=== PATIENT | male | born 1965 | race Caucasian/White ===

== ENCOUNTER 2025-05-06 10:40 | Inpatient (IN) | payer MEDICAID, OTHER ==
[~2025-05-06] VITALS: Ht 167.6 cm; Wt 70.1 kg
[2025-05-06] MEDS: cefTRIAXone 2GM/50ML D5W 50 ML IV ONE
[2025-05-06] MEDS: ONDANSETRON HCL 4 MG/2 ML VIAL IV ONE ×3 (11:26→18:27)
[2025-05-06 11:28] VITALS: PULSE 110; RESP 17; O2SAT 94
--- NOTE | 2025-05-06 11:28 | ED.PDOC ---
GI ASSESSMENT HPI Comments 59-year-old male who comes in with chief complaint of abdominal pain and distention. The patient states that he was diagnosed with a liver tumor and then liver cancer approximately one year ago. Approximately three months ago the patient was told that the cancer had spread to both his kidneys in his lungs. The patient has been living in [place] and has been homeless so he has not followed up with anyone about treatment. Over the past four days, the patient has noticed a significant amount of abdominal distention. The patient states that the pain is an 8/10. There has been nausea, vomiting and diarrhea. Prior to arrival the patient did take some ibuprofen with only mild relief. The patient was able to ambulate into the emergency department's without any difficulty. Chief Complaint: Abdominal Pain Time Seen by MD: 10:52 Reviewed Notes: Nurses Notes, Medications, Allergies (No allergies to medications) Allergies: Coded Allergies: NO KNOWN ALLERGIES (Unverified , 05/06/25) Information Source: Patient Mode of Arrival: Ambulatory Timing: Days Duration: Since onset Prehospital treatment: None Quality: Aching Vomitus: Bilious Stool: Watery Severity: Moderate Recent: Other (Possible recent diagnosis of liver cancer with metastasis) Recent Hx of: Liver Disease Pain Location: Diffuse Modifying Factors: Nothing Associated sign and symptoms: Nausea, Vomiting, Diarrhea, Abdominal Pain, Other (Abdominal distention) Past Medical History PAST MEDICAL HISTORY: Cancer (Liver cancer with metastasis), COPD Surgical History (Other): Left arm surgery, bilateral wrist surgery, right knee surgery, left ankle surgery Family History Family History: Family hx of Cancer Social History Smoker: Cigarettes Alcohol: Sober Drugs: Methamphetamine Lives In: Homeless Constitutional: denies: chills, diaphoresis, fatigue, fever, malaise, sweats, weakness, others EENTM: denies: blurred vision, double vision, ear bleeding, ear discharge, ear drainage, ear pain, ear ringing, eye pain, eye redness, hearing loss, mouth pain, mouth swelling, nasal discharge, nose bleeding, nose congestion, nose pain, photophobia, tearing, throat pain, throat swelling, voice changes, others Respiratory: reports: shortness of breath; denies: cough, hemoptysis, orthopnea, SOB at rest, SOB with excertion, stridor, wheezing, others Cardiovascular: denies: chest pain, dizzy spells, diaphoresis, Dyspnea on exertion, edema, irregular heart beat, left arm pain, lightheadedness, palpitations, PND, syncope, others Gastrointestinal: reports: abdomen distended, abdominal pain, diarrhea, nausea, vomiting; denies: blood streaked bowels, constipated, dysphagia, difficulty swallowing, hematemesis, melena, poor appetite, poor fluid intake, rectal bleeding, rectal pain, others Genitourinary: denies: burning, dysuria, flank pain, frequency, hematuria, incontinence, penile discharge, penile sore, pain, testicle pain, testicle swelling, urgency, others Neurological: denies: dizziness, fainting, headache, left sided numbness, left sided weakness, numbness, paresthesia, pre-existing deficit, right sided numbness, right sided weakness, seizure, speech problems, tingling, tremors, weakness, others Musculoskeletal: denies: back pain, gout, joint pain, joint swelling, muscle pain, muscle stiffness, neck pain, others Integumetry: denies: bruises, change in color, change in hair/nails, dryness, laceration, lesions, lumps, rash, wounds, others Allergic/Immunocompromised: denies: Difficulty Healing, Frequent Infections, Hives, Itching, others Hematologic/Lymphatic: denies: anemia, blood clots, easy bleeding, easy bruising, swollen glands, others Endocrine: denies: excessive hunger, excessive sweating, excessive thirst, excessive urination, flushing, intolerance to cold, intolerance to heat, unexplained weight gain, unexplained weight loss, others Psychiatric: denies: anxiety, bipolar disorder, depression, hopeless, panic disorder, schizophrenia, sleepless, suicidal, others Physical Exam General Appearance: Moderate Distress HEENT: Pale Conjuntivae (L), Pale Conjuntivae (R), Pharynx Normal, TMs Normal Neck: Full Range of Motion, Non-Tender, Normal, Normal Inspection Respiratory: Chest Non-Tender, Lungs Clear, No Accessory Muscle Use, No Respiratory Distress, Normal Breath Sounds Cardiovascular: No Edema, No JVD, No Murmur, No Gallop, Normal Peripheral Pulses, Regular Rate/Rhythm Breast Exam: Deferred Gastrointestinal: Distended, Hepatomegaly, No Pulsatile Mass, Normal Bowel Sounds Genitalia: Deferred Pelvic: Deferred Rectal: Deferred Extremities: No calf tenderness, Normal capillary refill, Pedal edema Musculoskeletal : Apperance: Normal Neurologic: Alert, chief executive or managing director II-XII nml as Tested, No Motor Deficits, Normal Affect, Normal Mood, No Sensory Deficits Cerebellar Function: Normal Reflexes: Normal Skin: Dry, Normal Color, Warm Lymphatic: No Adenopathy Was a procedure done? Was a procedure done?: No GI differential Dx Differential Diagnosis: Diverticular disease, Gastritis/PUD, Gastroenteritis, Hepatitis, Other (Liver cirrhosis) X-Ray, Labs, Meds, VS Vital Signs Date Time Temp Pulse Resp B/P (MAP) Pulse Ox O2 Delivery O2 Flow Rate FiO2 05/06/25 11:28 110 17 94 Room Air* 0 21 05/06/25 11:28 98.6 110 17 106/66 (79) 94 98.6 05/06/25 11:03 99.1 102 16 126/77 (93) 96 99.1 Lab Test 05/06/25 12:00 05/06/25 11:54 Range/Units Urine Color Dark-yellow Yellow Urine Clarity Clear Clear Urine pH 6.0 5.0-9.0 Urine Specific Marvin 1.027 1.001-1.035 Urine Protein 1+ H Negative Urine Ketones Negative Negative Urine Blood Negative Negative /uL Urine Nitrite Negative Negative Urine Bilirubin 1+ Negative Urine Urobilinogen 12 H Negative mg/dL Urine Leukocyte Esterase Negative Negative /uL Urine RBC 1 0 - 3 /hpf Urine Microscopic WBC 3 0-3 /HPF Urine Squamous Epithelial Cells None seen <5 /hpf Urine Bacteria None seen None Seen /hpf Urine Glucose Normal Normal mg/dL White Blood Count 10.8 4.4-10.8 10^3/uL Red Blood Count 4.03 L 4.5-5.90 10^6/uL Hemoglobin 11.8 L 13.5-17.5 g/dL Hematocrit 35.8 L 41.0-53.0 % Mean Corpuscular Volume 88.7 80.0-100.0 fL Mean Corpuscular Hemoglobin 29.3 28.0-32.0 pg Mean Corpuscular Hemoglobin Concent 33.0 32.0-36.0 g/dL Red Cell Distribution Width 20.3 H 11.8-14.3 % Platelet Count 344 140-450 10^3/uL Mean Platelet Volume 8.7 6.9-10.8 fL Neutrophils (%) (Auto) 37.0-80.0 % Lymphocytes (%) (Auto) 10.0-50.0 % Monocytes (%) (Auto) 0.0-12.0 % Basophils (%) (Auto) 0.0-2.0 % Neutrophils # (Auto) 1.6-8.6 10 ^3/uL Lymphocytes # (Auto) 0.4-5.4 10 ^3/uL Monocytes # (Auto) 0-1.3 10 ^3/uL Differential Total Cells Counted Pending Neutrophils % (Manual) Pending Band Neutrophils % (Manual) Pending Lymphocytes % (Manual) Pending Monocytes % (Manual) Pending Eosinophils % (Manual) Pending Basophils % (Manual) Pending Metamyelocytes % (manual) Pending Myelocytes % (Manual) Pending Promyelocytes % (Manual) Pending Blast Cells % (Manual) Pending Reactive Lymphocytes Pending Platelet Estimate Pending Prothrombin Time 12.9 H 9.3-11.8 sec Prothrombin Time INR 1.24 H 0.9-1.15 Activated Partial Thromboplast Time 36.9 H 24.5-34.5 SEC Sodium Level 131 L 136-145 mmol/L Potassium Level 4.6 3.5-5.1 mmol/L Chloride Level 97 L 98-107 mmol/L Carbon Dioxide Level 27 20-31 mmol/L Anion Gap 7 5-15 Blood Urea Nitrogen 13 9-23 mg/dL Creatinine 0.70 0.700-1.30 mg/dL Glomerular Filtration Rate Calc 106 >90 mL/min BUN/Creatinine Ratio 18.6 10.0-20.0 Serum Glucose 85 74-106 mg/dL Calcium Level 9.6 8.7-10.4 mg/dL Total Bilirubin 1.7 H 0.2-1.0 mg/dL Aspartate Amino Transferase (AST) 324 H <34 U/L Alanine Aminotransferase (ALT) 204 H 7-40 U/L Alkaline Phosphatase 288 H 46-116 U/L Total Protein 7.8 5.7-8.2 g/dL Albumin 3.4 3.2-4.8 g/dL Lipase 89 H 12-53 U/L Current Medications Medications (Trade) Dose Ordered Sig/Ruba Route Start Time Stop Time Status Last Admin Ondansetron HCl (Zofran) 4 mg ONCE ONCE IV 05/06/25 11:15 05/06/25 11:16 DC 05/06/25 11:26 IMPRESSION: Hepatic cirrhosis and sequelae of portal hypertension. Presumed posttreatment related change in the posterior right hepatic dome. Fibrotic changes in the lung bases. Indeterminate 1.4 cm nodule in the left lower lobe. Hep-Lock was established. The patient was given Zofran 4 mg IV push the nausea The patient is being admitted at this time The patient's CBC is within normal limits The chemistry panel shows elevated liver enzymes as well as the lipase level of 89 The INR is 1.24 At this time, the patient will be admitted to the hospitalist Images Reviewed?: Images reviewed and evaluated by me Time of 1ST Reevaluation: 11:27 Reevaluation 1ST: Unchanged Patient Education/Counseling: Diagnosis, Treatment, Prognosis Family Education/Counseling: No Family Present Departure 1 Departure Time of Disposition: 12:53 Impression: Primary Impression: Intractable abdominal pain Additional Impressions: Liver cirrhosis Qualified Codes: K70.30 - Alcoholic cirrhosis of liver without ascites Acute pancreatitis Qualified Codes: K85.20 - Alcohol induced acute pancreatitis without ne crosis or infection Disposition: ADMITTED INPATIENT Admit to: Med Surg Condition: Fair Critical Care Note Critical Care Time?: No Stability Stability form required: Yes Unstable for transfer: ED Physician Assesment (Clinical assesment) Heart Score Heart Score: Heart Score Response (Comments) Value History N/A 0 EKG N/A 0 Age N/A 0 Risk Factors N/A 0 Troponin N/A 0 Total 0 I personally scribed for CALE BHAT MD ([email or web address]) on 05/06/25 at 11:46. Electronically submitted by Esther Abraham [email or web address]). CALE BHAT MD May 06, 2025 11:28
--- NOTE | 2025-05-06 11:44 | DVH ---
Exam: CT CT AB PEL WO CON-NO ORAL OR IV History: pain Comparison Study: None Technique: Multidetector spiral CT of the abdomen was performed from lung bases to pubic symphysis. I maging was performed without IV contrast. Axial, coronal and sagittal multiplanar reformats were obta ined from the axial data set by the technologist. Radiation Dose : 1. Abdomen/Pelvis: CTDIvol 9.2 mGy, DLP 484.1 mGy*cm. Findings: Evaluation of solid organs is limited due to lack of intravenous contrast use. Lung Bases: Fibrotic changes are present in the lung bases. 1.4 cm nodule in the left lower lobe. Liver: Hepatic cirrhosis. Heterogeneous hyperechoic regions are present in the right hepatic dome pos sibly representing posttreatment related change. Gallbladder and Biliary Tree: Unremarkable Spleen: Splenomegaly. Pancreas: The pancreas is grossly normal in appearance. Adrenal Glands: Left adrenal mass measures 6.0 cm. Kidneys: Kidneys are grossly normal without calculi or hydronephrosis. Bladder: Grossly unremarkable for degree of distention. Bowel: The stomach is grossly normal in appearance. Small bowel and colon are normal in caliber and d istribution. The appendix is not visualized; however, no secondary findings of acute appendicitis rupa ntified. Ascites: Small volume ascites. Lymphadenopathy: No mesenteric, retroperitoneal or periportal lymphadenopathy. Abdominal Wall and Mesentery: Unremarkable. Vasculature: The visualized abdominal aorta is normal in size and caliber. There is extensive athero sclerotic calcification of the aorta and its branches. Evaluation of abdominal and pelvic vessels is limited due to lack of intravenous contrast. Pelvic Organs: Unremarkable Musculoskeletal: No aggressive focal bony lesions, acute fractures or dislocation. Degenerative hartmann es of the spine. IMPRESSION: Hepatic cirrhosis and sequelae of portal hypertension. Presumed posttreatment related change in the posterior right hepatic dome. Fibrotic changes in the lung bases. Indeterminate 1.4 cm nodule in the left lower lobe.
[2025-05-06 12:23] LABS: Alanine Aminotransferase 204 U/L (7-40); Albumin 3.4 g/dL (3.2-4.8); Alkaline Phosphatase 288 U/L (46-116); Anion Gap 7 (5-15); Aspartate Aminotransferase 324 U/L (<34); BUN/Creatinine Ratio 18.6 (10.0-20.0); Blood Urea Nitrogen 13 mg/dL (9-23); Calcium 9.6 mg/dL (8.7-10.4); Carbon Dioxide 27 mmol/L (20-31); Chloride 97 mmol/L (98-107); Glucose 85 mg/dL (74-106); Potassium 4.6 mmol/L (3.5-5.1); Sodium 131 mmol/L (136-145); Total Protein 7.8 g/dL (5.7-8.2)
[2025-05-06 12:24] LABS: Bilirubin, Total 1.7 mg/dL (0.2-1.0)
[2025-05-06 12:25] LABS: Urine Bacteria None Seen /hpf (None Seen)
[2025-05-06 12:26] LABS: Hematocrit 35.8 % (41.0-53.0); Hemoglobin 11.8 g/dL (13.5-17.5); Mean Corpuscular Hemoglobin 29.3 pg (28.0-32.0); Mean Corpuscular Volume 88.7 fL (80.0-100.0); Platelet Count (auto) 344 10^3/uL (140-450); Red Blood Cells 4.03 10^6/uL (4.5-5.90); White Blood Cell 10.8 10^3/uL (4.4-10.8)
[2025-05-06 12:31] LABS: Red Cell Distribution Width 20.3 % (11.8-14.3)
[2025-05-06 12:32] LABS: INR 1.24 (0.9-1.15); Partial Thromboplastin Time 36.9 SEC (24.5-34.5); Prothrombin Time 12.9 sec (9.3-11.8)
[2025-05-06 12:33] LABS: Basophils % (manual) 0 (0.0-2.0); Blast Cells 0; Metamyelocytes % 0; Myelocytes % 0; Promyelocytes % 0; Reactive Lymphocytes 0
[2025-05-06 12:42] LABS: Lipase 89 U/L (12-53)
[2025-05-06 12:45] LABS: Urine Blood Negative /uL (Negative); Urine Clarity Clear (Clear); Urine Color Dark-Yellow (Yellow); Urine Protein, UAD 1+ (Negative); Urine Specific Gravity 1.027 (1.001-1.035); Urine Squamous Epithelial Cell None Seen /hpf (<5); Urine WBC 3 /HPF (0-3)
[2025-05-06 12:47] LABS: Urine Urobilinogen 12 mg/dL (Negative)
[2025-05-06 13:51] LABS: Band Neutrophils % (manual) 6; Eosinophils % (manual) 1 (0-7)
[2025-05-06 13:52] LABS: Lymphocytes % (manual) 21 (10.0-50.0); Monocytes % (manual) 5 (0-12)
[2025-05-06 13:53] LABS: Anisocytosis Moderate; Platelet Estimate Adequate
[2025-05-06] MEDS: MORPHINE SULFATE 4 MG/ML SYR/VIAL IV ONE ×2 (14:29→18:30)
[2025-05-06] MEDS: ACETAMINOPHEN 325 MG TAB PO ONE (17:16)
[2025-05-06] MEDS: SODIUM CHLORIDE 0.9% 500 ML IV ONE (22:30)
[2025-05-06] MEDS ORDERED: ACETAMINOPHEN 325 MG TAB PO PRN (22:30)
[2025-05-06] MEDS ORDERED: VANCOMYCIN PER PHARMACY 0 MG IV SCH (22:30)
[2025-05-06 22:40] VITALS: RESP 16; O2SAT 96
[2025-05-06] MEDS: VANCOMYCIN 1.5GM/300ML 300 ML IV ONE (23:00)
[2025-05-06 23:26] LABS: Basophils # (auto) 0.1 10 ^3/uL (0-0.2); Basophils % (auto) 0.6 % (0.0-2.0); Eosinophils # (auto) 0.1 10 ^3/uL (0-0.8); Eosinophils % (auto) 0.7 % (0.0-7.0); Hematocrit 35.2 % (41.0-53.0); Hemoglobin 11.9 g/dL (13.5-17.5); Lymphocytes # (auto) 2.8 10 ^3/uL (0.4-5.4); Mean Corpuscular Hemoglobin 29.6 pg (28.0-32.0); Mean Corpuscular Hgb Conc. 33.8 g/dL (32.0-36.0); Mean Corpuscular Volume 87.8 fL (80.0-100.0); Monocytes # (auto) 0.8 10 ^3/uL (0-1.3); Monocytes % (auto) 6.1 % (0.0-12.0); Neutrophils % (auto) 70.6 % (37.0-80.0); Platelet Count (auto) 384 10^3/uL (140-450); Red Blood Cells 4.01 10^6/uL (4.5-5.90); Red Cell Distribution Width 19.8 % (11.8-14.3); White Blood Cell 12.8 10^3/uL (4.4-10.8)
[2025-05-06 23:35] LABS: Albumin 3.4 g/dL (3.2-4.8); Anion Gap 7 (5-15); BUN/Creatinine Ratio 14.6 (10.0-20.0); Blood Urea Nitrogen 14 mg/dL (9-23); Calcium 9.4 mg/dL (8.7-10.4); Carbon Dioxide 25 mmol/L (20-31); Glucose 98 mg/dL (74-106); Potassium 4.7 mmol/L (3.5-5.1); Total Protein 7.9 g/dL (5.7-8.2)
[2025-05-06 23:36] LABS: Alanine Aminotransferase 216 U/L (7-40); Alkaline Phosphatase 279 U/L (46-116); Aspartate Aminotransferase 330 U/L (<34); Bilirubin, Total 1.7 mg/dL (0.2-1.0); Chloride 94 mmol/L (98-107); Sodium 126 mmol/L (136-145)
[2025-05-07] VITALS (14 sets, daily range): BP systolic 98–111; BP diastolic 57–70; PULSE 86–100; RESP 16–18; TEMP 97.8–100; O2SAT 90–98
[2025-05-07] MEDS: FUROSEMIDE 20 MG/2 ML VIAL IV ONE (00:45)
[2025-05-07] MEDS: IPRATROPIUM BROM 0.5 MG/2.5ML INH SOL NEB ONE (00:45)
[2025-05-07] MEDS: ALBUTEROL SULF 2.5 MG/0.5ML(0.5%) NEB SOLN NEB ONE (00:45)
[2025-05-07] MEDS: PANTOPRAZOLE 40 MG/10 ML VIAL INJ IV ONE (00:45)
--- NOTE | 2025-05-07 00:52 | DVHHPRES ---
History of Present Illness Resident Creating Document: BLANKASALVADOR RESIDENT History of Present Illness Patient is a 59-year-old male with a past medical history of COPD, liver cancer diagnosed about 8 months ago presented to the ED with a chief complaint of abdominal pain and distention. Patient reports that he is homeless and was living in [place] but was not happy with the treatment the and came to [place] forgetting further treatment. Patient reports of being a heavy drinker previously but quit about 6 years ago, last year had abdominal distention following which he was diagnosed with liver cancer following a biopsy done 8 months ago. Reports that he was offered treatment chemotherapy/radi otherapy but he does not want to get any of those. He reports that since the last 4-5 days , noticed abdominal distention and worsening abdominal pain. Reports of having loose stools 1-2 episodes every day and has nausea, no blood in the stools, no blood in the vomitus. Patient also noticed that about 3 days ago he had a sunburn on his nose following which the skin started peeling of the small part of the skin was attached which he peeled of himself and it was bleeding and started oozing clear to yellowish liquid. He also had a small bump on his right arm which also started oozing. Patient reports of a bump on his head near the vertex which is a small rough scaly crusted about 1 X 0.5 cm in size with irregular borders course and dry and scaly. Past medical history: COPD, liver cancer Surgical history: Bilateral wrist, right knee, left ankle surgery Social history: Patient was a heavy drinker and quit 6 years ago, currently smokes about half a pack of cigarettes per day and occasional methamphetamine use last reported 2 weeks ago No home medications Review of Systems Review of Systems Patient seen and examined at the bedside Reports of abdominal pain, nausea Nose pain Denies fever or chills Allergies: Coded Allergies: NO KNOWN ALLERGIES (Unverified , 05/06/25) Medications Current Medications Medications Dose Ordered Sig/Ruba Route Start Time Stop Time Status Last Admin Dose Admin Vancomycin HCl 0 ml @ 0 mls/hr UD IV 05/06/25 22:30 UNV Ceftriaxone Sodium 50 ml @ 100 mls/hr DAILY@09 IV 05/07/25 09:00 Acetaminophen 650 mg Q8HP PRN PO 05/06/25 22:30 Ondansetron HCl 4 mg Q6HPRN PRN IV 05/06/25 22:30 Morphine Sulfate 4 mg Q6HPRN PRN IV 05/06/25 22:30 Exam Vital Signs Vital Signs Date Time Temp Pulse Resp B/P (MAP) Pulse Ox O2 Delivery O2 Flow Rate FiO2 05/06/25 22:51 99.9 87 18 105/64 (78) 93 99.9 05/06/25 22:40 Room Air* 0 21 Exam Gen - no pallor, no icterus, no cyanosis, no clubbing, no LAD, 2+ bilateral pitting edema. Skin - Patients skin is warm and dry. HEENT - normocephalic, atraumatic, moist mucous membranes. Neck - full ROM, no LAD, no JVD Pulmonary - B/L equal breath sounds with coarse crackles in the lower lobes, no wheezing, no stridor. cardiovascular - regular S1,S2 heard, no added sounds, no murmurs heard. periphe ral pulses normal radial 2+, pedal 2+. GI - distended, hard abdomen with diffuse tenderness to palpation, hepatosplenomegaly palpated Bowel sounds normoactive, no shifting dullness Neurological - Patient is A/O X 3 . Bilateral upper extremity strength 5/5, bilateral lower extremity strength 5/5, no facial droop, normal speech, no tremor, no sensory deficiets. Labs/Xrays Labs Test 05/06/25 23:05 05/06/25 12:00 05/06/25 11:54 Range/Units White Blood Count 12.8 H 4.4-10.8 10^3/uL Red Blood Count 4.01 L 4.5-5.90 10^6/uL Hemoglobin 11.9 L 13.5-17.5 g/dL Hematocrit 35.2 L 41.0-53.0 % Mean Corpuscular Volume 87.8 80.0-100.0 fL Mean Corpuscular Hemoglobin 29.6 28.0-32.0 pg Mean Corpuscular Hemoglobin Concent 33.8 32.0-36.0 g/dL Red Cell Distribution Width 19.8 H 11.8-14.3 % Platelet Count 384 140-450 10^3/uL Mean Platelet Volume 8.4 6.9-10.8 fL Neutrophils (%) (Auto) 70.6 37.0-80.0 % Lymphocytes (%) (Auto) 22.0 10.0-50.0 % Monocytes (%) (Auto) 6.1 0.0-12.0 % Eosinophils (%) (Auto) 0.7 0.0-7.0 % Basophils (%) (Auto) 0.6 0.0-2.0 % Neutrophils # (Auto) 9.0 H 1.6-8.6 10 ^3/uL Lymphocytes # (Auto) 2.8 0.4-5.4 10 ^3/uL Monocytes # (Auto) 0.8 0-1.3 10 ^3/uL Eosinophils # (Auto) 0.1 0-0.8 10 ^3/uL Basophils # (Auto) 0.1 0-0.2 10 ^3/uL Nucleated Red Blood Cells 0.0 % Sodium Level 126 #L 136-145 mmol/L Potassium Level 4.7 3.5-5.1 mmol/L Chloride Level 94 L 98-107 mmol/L Carbon Dioxide Level 25 20-31 mmol/L Anion Gap 7 5-15 Blood Urea Nitrogen 14 9-23 mg/dL Creatinine 0.96 0.700-1.30 mg/dL Glomerular Filtration Rate Calc 91 >90 mL/min BUN/Creatinine Ratio 14.6 10.0-20.0 Serum Glucose 98 74-106 mg/dL Lactic Acid Level 1.4 0.4-2.0 mmol/L Calcium Level 9.4 8.7-10.4 mg/dL Total Bilirubin 1.7 H 0.2-1.0 mg/dL Aspartate Amino Transferase (AST) 330 H <34 U/L Alanine Aminotransferase (ALT) 216 H 7-40 U/L Alkaline Phosphatase 279 H 46-116 U/L Total Protein 7.9 5.7-8.2 g/dL Albumin 3.4 3.2-4.8 g/dL Urine Color Dark-yellow Yellow Urine Clarity Clear Clear Urine pH 6.0 5.0-9.0 Urine Specific [place] 1.027 1.001-1.035 Urine Protein 1+ H Negative Urine Ketones Negative Negative Urine Blood Negative Negative /uL Urine Nitrite Negative Negative Urine Bilirubin 1+ Negative Urine Urobilinogen 12 H Negative mg/dL Urine Leukocyte Esterase Negative Negative /uL Urine RBC 1 0 - 3 /hpf Urine Microscopic WBC 3 0-3 /HPF Urine Squamous Epithelial Cells None seen <5 /hpf Urine Bacteria None seen None Seen /hpf Urine Glucose Normal Normal mg/dL Differential Total Cells Counted 100.0 100 Neutrophils % (Manual) 67 37.0-80.0 Band Neutrophils % (Manual) 6 Lymphocytes % (Manual) 21 10.0-50.0 Monocytes % (Manual) 5 0-12 Eosinophils % (Manual) 1 0-7 Basophils % (Manual) 0 0.0-2.0 Metamyelocytes % (manual) 0 Myelocytes % (Manual) 0 Promyelocytes % (Manual) 0 Blast Cells % (Manual) 0 Reactive Lymphocytes 0 Platelet Estimate Adequate Anisocytosis (manual) Moderate Prothrombin Time 12.9 H 9.3-11.8 sec Prothrombin Time INR 1.24 H 0.9-1.15 Activated Partial Thromboplast Time 36.9 H 24.5-34.5 SEC Lipase 89 H 12-53 U/L Assessment/Plan Assessment/Plan Acute abdominal pain Hepatosplenomegaly H/o liver cancer Possible portal hypertension liver cirrhosis MELD-Na 11 Coagulopathy Possible SBP - CT abdomen pelvis shows hepatic cirrhosis and sequelae of portal hypertension, splenomegaly, heterogeneous hyperechoic regions in the right hepatic dome passive early post treatment related change, small volume ascites - started on IV ceftriaxone 2 g - abdominal ultrasound pending - Lasix and spironolactone Nasal wound Sunburn Wound on the right upper extremity - started on IV vancomycin - IV fluids Acute on chronic hypoxic respiratory failure COPD, no exacerbation Lung fibrosis Left lower lobe nodule measuring 1.4 cm, possible metastasis - duo nebs q.8 hours - oxygen as needed Sepsis likely due to skin wounds vs SBP - IV vancomycin and ceftriaxone - judicious use of IV fluids Hypervolemic hypotonic hyponatremia likely from cirrhosis - iv lasix PUD prophylaxis: Protonix Goals of care discussed with the patient for over 31 minutes. Full code Time spent: 47 minutes Plan discussed with Dr. Albarado Plan discussed with: Patient My Orders Orders - SALVADOR MOSCOSO RESIDENT Procedure Category Date Status Time Admit ADMIT 05/06/25 Transmitted 22:29 Oxygen By Nasal RT 05/06/25 Transmitted Cannula 22:29 Stat Ekg For Chest VIRAJ 05/06/25 In Process Pain 22:29 Notify Of Changes VIRAJ 05/06/25 In Process From Base 22:29 Wound Culture W/ Gs DANIEL 05/06/25 Logged 22:29 Wound Culture W/ Gs DANIEL 05/06/25 Logged 22:29 Mrsa Screen DANIEL 05/06/25 Logged 22:29 Vancomycin Per PHA 05/06/25 Pending Pharmacy 22:30 Ceftriaxone 1gm/50ml PHA 05/07/25 In Process D5w (Rocephin) 09:00 Blood Culture DANIEL 05/06/25 In Process 22:29 Chest Xray 1 View XY 05/06/25 Taken 22:29 Stool Occult Blood LAB 05/06/25 Logged 22:29 Acetaminophen Tablet PHA 05/06/25 In Process (Tylenol Tablet) 22:30 Ondansetron Hcl [facility] 05/06/25 In Process (Zofran) 22:30 Morphine Sulfate PHA 05/06/25 In Process Injection 22:30 Vancomycin 1.5gm/300ml PHA 05/06/25 In Process 23:00 Date of Service: May 06, 2025 Billing Provider: MARIAELENA ALBARADO MD Common Visit Codes: 86053-BCBDBNV INP/OBS CARE (HIGH) Secondary Visit Codes: 01760-[id number] CARE PLAN 30 MINUTES SALVADOR MOSCOSO RESIDENT May 07, 2025 00:52
--- NOTE | 2025-05-07 04:18 | DVH ---
EXAM: XY CHEST XRAY 1 VIEW HISTORY: SOB COMPARISON: Upper images of CT scan of the abdomen dated 05/06/2025. TECHNIQUE: Portable upright AP view of the chest was performed. FINDINGS: There are diffuse bilateral interstitial opacities. No pneumothorax or consolidative infiltrates. The heart is not enlarged. IMPRESSION: Diffuse bilateral pulmonary interstitial opacities likely due to interstitial pulmonary fibrosis. C onsider follow-up noncontrast CT scan of the chest for better characterization a nonemergent basis.
[2025-05-07 05:35] LABS: Amphetamine Screen, Urine Neg (NEGATIVE); Barbiturate Scree,Urine Neg (NEGATIVE); Benzodiazephine Screen, Urine Neg (NEGATIVE); Cannabinoid Screen, Urine Neg (NEGATIVE); Cocaine Screen, Urine Neg (NEGATIVE); Opiate Scree,Urine Neg (NEGATIVE); Phencyclidine Screen, Urine Neg (NEGATIVE)
[2025-05-07] MEDS: HYDROcodone-ACET 5/325MG TAB PO PRN (05:39)
[2025-05-07] MEDS: PANTOPRAZOLE 40 MG TAB PO SCH (06:00)
[2025-05-07] MEDS: IPRATROPIUM BROM 0.5 MG/2.5ML INH SOL NEB SCH (06:57)
[2025-05-07] MEDS: ALBUTEROL SULF 2.5 MG/0.5ML(0.5%) NEB SOLN NEB SCH (06:58)
[2025-05-07] MEDS ORDERED: HYDROmorphone HCL 2 MG/ML VL/or syr IV PRN ×3 (08:15)
[2025-05-07] MEDS ORDERED: LACTATED RINGER'S 1,000 ML IV SCH (08:15)
[2025-05-07] MEDS: ONDANSETRON HCL 4 MG/2 ML VIAL IV PRN (09:00)
[2025-05-07] MEDS ORDERED: cefTRIAXone 1GM/50ML D5W 50 ML IV SCH (09:00)
[2025-05-07] MEDS: HYDROmorphone HCL 2 MG/ML VL/or syr IV PRN (09:01)
--- NOTE | 2025-05-07 09:40 | DVH ---
INDICATION: liver cirrhosis, ascites TECHNIQUE: Multiple real-time sonographic images were obtained of the right upper quadrant. COMPARISON: CT dated 05/06/2025 FINDINGS: The liver demonstrates heterogeneous and nodular echotexture without focal mass lesions. T he liver measures 23 cm. Multiple hyperechoic hepatic lesions are present measuring up to 2.1 cm. There is no intrahepatic or extrahepatic ductal dilatation. The common duct is not visualized. The gallbladder is without evidence of stone or sludge. Possible gallbladder polyp measuring 0.6 cm. The gallbladder wall measures 0.4 cm and is within normal limits. The right kidney measures 12.1 cm. The right kidney is normal in contour, size, and shape. The echoge nicity is normal. There is no hydronephrosis. The pancreas is not well visualized due to overlying bowel gas. IMPRESSION: Hepatic cirrhosis with multiple indeterminate hypoechoic masses possibly representing metastatic dise ase or multifocal HCC. Trace ascites. Gallbladder polyp is present measuring 0.6 cm. FOLLOW UP RECOMMENDATIONS: Extremely low-risk polyps (pedunculated [id number]-wall or thin stalk): <9 mm: no follow-up (FU) 10-14 mm: FU at 6, 12 and 24 months > 15 mm: surgical consult Damian Pryor, Denise C, Gabi J et al. Management of Incidentally Detected Gallbladder Polyps: Society of Radiologists in Ultrasound Consensus Conference Recommendations. Radiology. 2021;:[id number].
[2025-05-07] MEDS: SPIRONOLACTONE 25 MG TAB PO SCH (11:37)
[2025-05-07] MEDS: FUROSEMIDE 20 MG/2 ML VIAL IV SCH (11:37)
--- NOTE | 2025-05-07 11:45 | DVHPNRES ---
Progress Note Date Seen: May 07, 2025 Resident Creating Document: SHANTELL BERGMAN RESIDENT Medical Necessity Reason Pt with a Central, PICC or Fol: No Subjective Review of Systems 59-year-old male with a past medical history of COPD, liver cancer diagnosed about 8 months ago presented to the ED with a chief complaint of abdominal pain and distention. Patient reports that he is homeless and was living in [place] but was not happy with the treatment the and came to [place] forgetting further treatment. Patient reports of being a heavy drinker previously but quit about 6 years ago, last year had abdominal distention following which he was diagnosed with liver cancer following a biopsy done 8 months ago. Reports that he was offered treatment chemotherapy/radiotherapy but he does not want to get any of those. He reports that since the last 4-5 days , noticed abdominal distention and worsening abdominal pain. Reports of having loose stools 1-2 episodes every day and has nausea, no blood in the stools, no blood in the vomitus. Patient also noticed that about 3 days ago he had a sunburn on his nose following which the skin started peeling of the small part of the skin was attached which he peeled of himself and it was bleeding and started oozing clear to yellowish liquid. He also had a small bump on his right arm which also started oozing. Patient reports of a bump on his head near the vertex which is a small rough scaly crusted about 1 X 0.5 cm in size with irregular borders course and dry and scaly. Objective vital signs Vital Sign Date Time Temp Pulse Resp B/P (MAP) Pulse Ox O2 Delivery O2 Flow Rate FiO2 05/07/25 11:37 107/75 05/07/25 11:03 98.1 100 18 95 98.1 05/07/25 10:55 Room Air* 0 21 medications Current Medications Medications Dose Ordered Sig/Ruba Route Start Time Stop Time Status Last Admin Dose Admin Vancomycin HCl 0 ml @ 0 mls/hr UD IV 05/06/25 22:30 Acetaminophen 650 mg Q8HP PRN PO 05/06/25 22:30 Ondansetron HCl 4 mg Q6HPRN PRN IV 05/06/25 22:30 05/07/25 09:00 4 MG Morphine Sulfate 4 mg Q6HPRN PRN IV 05/06/25 22:30 Furosemide 20 mg DAILY IV 05/07/25 10:00 05/07/25 11:37 20 MG Spironolactone 25 mg DAILY PO 05/07/25 10:00 05/07/25 11:37 25 MG Ceftriaxone Sodium/Dextrose 50 ml @ 50 mls/hr DAILY@0000 IV 05/08/25 00:00 Pantoprazole Sodium 40 mg DAILY@0600 PO 05/07/25 06:00 Albuterol 2.5 mg Q8HR NEB 05/07/25 06:00 05/07/25 06:58 2.5 MG Ipratropium [place] 0.5 mg Q8HR NEB 05/07/25 06:00 05/07/25 06:57 0.5 MG Hydromorphone HCl 0.5 mg Q3HPRN PRN IV 05/07/25 08:15 Hydromorphone HCl 1 mg Q4HPRN PRN IV 05/07/25 08:15 05/07/25 09:01 1 MG Examination GENERAL: Not in acute distress. HEENT: EOMI, Moist mucous membranes. No scleral icterus. No cervical lymphadenopathy. LUNGS: B/L equal breath sounds with coarse crackles in the lower lobes, no wheezing, no stridor. CARDIOVASCULAR: Regular rate and rhythm. No murmur. No JVD. ABDOMEN: distended, hard abdomen with diffuse tenderness to palpation, hepatosplenomegaly palpated Bowel sounds normoactive, no shifting dullness EXTREMITIES: 2+ pedal edema. Nontender. SKIN: No rashes or lesions. Warm. 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 - Trace ascites. - CT abdomen pelvis shows hepatic cirrhosis and sequelae of portal hypertension, splenomegaly, heterogeneous hyperechoic regions in the right hepatic dome passive early post treatment related change, small volume ascites - started on IV ceftriaxone 2 g - abdominal ultrasound pending - Lasix and spironolactone # Nasal wound # Sunburn # Wound on the right upper extremity - use sulfasalazine on wound twice daily # Acute on chronic hypoxic respiratory failure # COPD, no exacerbation # Lung fibrosis # Left lower lobe nodule measuring 1.4 cm, possible metastasis - duo nebs q.8 hours - oxygen as needed Hypervolemic hypotonic hyponatremia likely from cirrhosis - iv lasix PUD prophylaxis: Protonix Goals of care discussed with the patient for 21 minutes. Full code Plan discussed with Dr. Cooper Plan discussed with: Patient Date of Service: May 07, 2025 Billing Provider: DEANDRA COOPER MD Common Visit Codes: [id number] INP/OBS CARE(HIGH) Secondary Visit Codes: [id number] CARE PLAN 30 MINUTES SHANTELL BERGMAN RESIDENT May 07, 2025 11:45 DEANDRA COOPER MD May 07, 2025 22:26
[2025-05-07] MEDS ORDERED: HYDROMORPHONE HCL 1 MG/ML INJ IV PRN (15:15)
[2025-05-07] MEDS: SILVER SULFADIAZINE 1 % TOPICAL CREAM 50GM TOP SCH (22:14)
[2025-05-07] MEDS: HYDROMORPHONE HCL 1 MG/ML INJ IV PRN (22:19)
[2025-05-08] VITALS (12 sets, daily range): BP systolic 101–120; BP diastolic 61–77; PULSE 81–108; RESP 16–18; TEMP 98.3–99; O2SAT 89–99
[2025-05-08] MEDS: cefTRIAXone 2GM/50ML D5W 50 ML IV SCH (00:06)
[2025-05-08 04:08] LABS: Hematocrit 31.7 % (41.0-53.0); Hemoglobin 10.7 g/dL (13.5-17.5); Mean Corpuscular Hemoglobin 29.6 pg (28.0-32.0); Mean Corpuscular Hgb Conc. 33.8 g/dL (32.0-36.0); Mean Corpuscular Volume 87.5 fL (80.0-100.0); Platelet Count (auto) 317 10^3/uL (140-450); Red Blood Cells 3.62 10^6/uL (4.5-5.90); Red Cell Distribution Width 19.5 % (11.8-14.3); White Blood Cell 10.5 10^3/uL (4.4-10.8)
[2025-05-08 04:14] LABS: Band Neutrophils % (manual) 0; Basophils % (manual) 0 (0.0-2.0); Blast Cells 0; Metamyelocytes % 0; Myelocytes % 0; Promyelocytes % 0; Reactive Lymphocytes 0
[2025-05-08 05:00] LABS: Eosinophils % (manual) 3 (0-7); Lymphocytes % (manual) 17 (10.0-50.0); Monocytes % (manual) 4 (0-12)
[2025-05-08 05:01] LABS: Platelet Estimate Adequate
[2025-05-08] MEDS: VANCOMYCIN 1GM/200ML PM 200 ML IV SCH (10:13)
[2025-05-08] MEDS: MORPHINE SULFATE 4 MG/ML SYR/VIAL IV PRN (14:59)
--- NOTE | 2025-05-08 15:22 | DVHPNRES ---
Progress Note Date Seen: May 08, 2025 Resident Creating Document: LETICIA REECE RESIDENT Medical Necessity Reason Pt with a Central, PICC or Fol: No Subjective Review of Systems 59-year-old male with a past medical history of COPD, liver cancer diagnosed about 8 months ago presented to the ED with a chief complaint of abdominal pain and distention. Patient reports that he is homeless and was living in [place] but was not happy with the treatment the and came to [place] forgetting further treatment. Patient reports of being a heavy drinker previously but quit about 6 years ago, last year had abdominal distention following which he was diagnosed with liver cancer following a biopsy done 8 months ago. Reports that he was offered treatment chemotherapy/radiotherapy but he does not want to get any of those. He reports that since the last 4-5 days , noticed abdominal distention and worsening abdominal pain. Reports of having loose stools 1-2 episodes every day and has nausea, no blood in the stools, no blood in the vomitus. Patient also noticed that about 3 days ago he had a sunburn on his nose following which the skin started peeling of the small part of the skin was attached which he peeled of himself and it was bleeding and started oozing clear to yellowish liquid. He also had a small bump on his right arm which also started oozing. Patient reports of a bump on his head near the vertex which is a small rough scaly crusted about 1 X 0.5 cm in size with irregular borders course and dry and scaly. Patient seen and examined at the bedside. Discontinued IV fluids, bladder scan WNL. Soft diet. Patient had 1 BM. Abdomen is swollen and distended and tender. Objective vital signs Vital Sign Date Time Temp Pulse Resp B/P (MAP) Pulse Ox O2 Delivery O2 Flow Rate FiO2 05/08/25 14:59 87 19 107/70 05/08/25 13:00 98.4 95 98.4 05/08/25 10:10 Room Air* 0 21 Total Intake and Output 05/07/25 05/07/25 05/08/25 15:00 23:00 07:00 Intake Total 400 ml 450 ml Output Total 1150 ml Balance 400 ml -700 ml medications Current Medications Medications Dose Ordered Sig/Ruba Route Start Time Stop Time Status Last Admin Dose Admin Vancomycin HCl 0 ml @ 0 mls/hr UD IV 05/06/25 22:30 Acetaminophen 650 mg Q8HP PRN PO 05/06/25 22:30 Ondansetron HCl 4 mg Q6HPRN PRN IV 05/06/25 22:30 05/07/25 09:00 Morphine Sulfate 4 mg Q6HPRN PRN IV 05/06/25 22:30 05/08/25 14:59 Furosemide 20 mg DAILY IV 05/07/25 10:00 05/08/25 10:11 Spironolactone 25 mg DAILY PO 05/07/25 10:00 05/07/25 11:37 Ceftriaxone Sodium/Dextrose 50 ml @ 50 mls/hr DAILY@0000 IV 05/08/25 00:00 05/08/25 00:06 Pantoprazole Sodium 40 mg DAILY@0600 PO 05/07/25 06:00 05/08/25 05:35 Albuterol 2.5 mg Q8HR NEB 05/07/25 06:00 05/07/25 18:41 Ipratropium [place] 0.5 mg Q8HR NEB 05/07/25 06:00 05/08/25 06:15 Silver Sulfadiazine 1 applic BID TOP 05/07/25 22:00 05/07/25 22:14 Vancomycin HCl 200 ml @ 160 mls/hr Q12H IV 05/08/25 09:45 05/08/25 10:13 Examination Patient lying in bed, in no acute distress General: afebrile, palor, mucosae are moist Cardiovascular: Regular S1 and S2. No murmurs, gallops or rubs. No JVD elevation. Bilateral pitting edema Respiratory: Normal B/L air entry on room air. Clear lung sounds on auscultation Abdomen: Mildly hard, tender, distended with hepatosplenomegaly, normoactive bowel sounds, no rebound tenderness Genitourinary: Deferred MSK/skin: Mobilizes 4 limbs. Skin is dry and warm Neurological: No motor, no sensitive deficits, normal speech. Pupils are isocoric and reactive. Psych/Mental Status: A/Ox3 laboratory and microbiology Laboratory Tests 05/08/25 03:30 05/06/25 23:05 Test 05/06/25 23:05 Range/Units Serum Glucose 98 74-106 mg/dL Microbiology Date/Time Source Procedure Growth Status 05/07/25 11:30 Nose Gram Stain - Final Resulted 05/07/25 11:30 Nose Wound Culture - Preliminary Resulted 05/06/25 23:05 Blood Blood Culture - Preliminary NO GROWTH AFTER 24 HOURS OF INCUBATION. Resulted Labs and/or images reviewed: Labs reviewed by me, Image(s) reviewed by me Problem List/Assessment/Plan Problem List/Assessment/Plan Sepsis likely due to skin wound versus spontaneous bacterial peritonitis ? Spontaneous bacterial peritonitis Likely Metastatic liver cancer Liver cirrhosis-meld score likely secondary to alcoholism Coagulopathy secondary to liver disease Hypovolemic hypotonic hyponatremia likely from cirrhosis US Liver shows: Hepatic cirrhosis with multiple indeterminate hypoechoic masses possibly representing metastatic disease or multifocal HCC. Trace ascites. CT abdomen pelvis shows hepatic cirrhosis and sequelae of portal hypertension, splenomegaly, heterogeneous hyperechoic regions in the right hepatic dome passive early post treatment related change, small volume ascites IV vancomycin and IV ceftriaxone 2 g daily Discontinued IV fluids IV Lasix 20 mg and Aldactone 25 mg p.o. Obtain records from [facility] Tumor markers pending Hepatitis panel pending Prelim blood culture negative, prelim wound culture showing Gram-positive milana IV morphine for pain control COPD-no exacerbation On room air Nebulized treatments q.4 hourly Anemia, normocytic versus iron-deficiency Iron panel in a.m. Multiple wounds ? Sunburn Patient has right upper extremity, scalp, nasal wound Wound consulted, wound care, sulfasalazine cream Chronic alcohol dependence Counseled regarding cessation for more than 20 minute client services assistant consulted for homelessness Soft diet with low-sodium Fluid restrictions Strict I&Os Plan discussed with patient in which all questions have been answered Goals of care discussed for more than 28 minutes, full code status Case discussed with Dr. Cooper Plan discussed with: Patient My Orders My Orders Orders - LETICIA REECE RESIDENT Procedure Category Date Status Time Afp Serum Tumor Marker LAB 05/08/25 In Process 09:01 Carcinoembryonic LAB 05/08/25 In Process Antigen 09:01 Carbohydrate Antigen LAB 05/08/25 In Process 19-9 09:01 Ca 125 (Serial) LAB 05/08/25 In Process 09:01 Vitamin B12 LAB 05/08/25 In Process 09:01 Vitamin D, 25-Hydroxy LAB 05/08/25 In Process 09:01 Strict I & O VIRAJ 05/08/25 In Process 09:10 Bladder Scan ORDERS 05/08/25 Transmitted 10:23 Mechanical Soft Diet DIET 05/08/25 Transmitted Lunch * Publicity Agent CONS 05/08/25 Transmitted Consult Dietary Evaluation Review Recommendations by RD: Protein Supplementation Comments: 1) Initiate Ensure Enlive qd 2) Encourage optimal PO intake 3) Advance to regular diet when medically feasible, pending ST approval 4) Follow-up with oncology 6) Continue to monitor I&O, labs, and skin integrity Expected Outcomes/Goals: 1) appetite and labs to improve 2) wounds to improve 3) diet to advance 4) f/u in 3-5 days Date of Service: May 08, 2025 Billing Provider: DEANDRA COOPER MD Common Visit Codes: [id number] INP/OBS CARE(HIGH) LETICIA REECE RESIDENT May 08, 2025 15:22 DEANDRA COOPER MD May 10, 2025 21:07
[2025-05-08] MEDS ORDERED: HYDROcodone-ACET 5/325MG TAB PO PRN (15:30)
--- NOTE | 2025-05-08 23:12 | DVHINCON2 ---
Date of service: May 08, 2025 Reason for Consultation Cirrhosis History of Present Illness 59 y/o M pt with PMH of alcoholic cirrhosis, meth abuse. COPD, liver cancer admitted with abd pain and distension. He reports being diagnosed with liver cancer few months ago and chemoXRT suggested in [place] but he declined without any further f/u. He denies any GIB, positive for constipation. COuld not recall previous EGD/colo Past Medical History As mentioned in HPI Past Surgical History Reviewed Family History: Patient reports no known family medical history. Allergies: Coded Allergies: NO KNOWN ALLERGIES (Unverified , 05/06/25) Current Medications Current Medications Medications (Trade) Dose Ordered Sig/Ruba Route PRN Reason Start Time Stop Time Status Last Admin Ceftriaxone Sodium/Dextrose 50 ml @ 50 mls/hr DAILY@0000 IV 05/08/25 00:00 05/08/25 00:06 Vancomycin HCl 200 ml @ 160 mls/hr Q12H IV 05/08/25 09:45 05/08/25 21:46 Acetaminophen/ Hydrocodone Bitart ([place] 5/325MG Tab) 1 tab Q4HPRN PRN PO MODERATE PAIN (4-6 PAIN SCALE) 05/08/25 15:30 Hold Morphine Sulfate 1 mg Q4HPRN PRN IV SEVERE PAIN (7-10 PAIN SCALE) 05/08/25 15:30 Review of Systems 14 point ROS neg except mentioned above Vital Signs Vital Signs Date Time Temp Pulse Resp B/P (MAP) Pulse Ox O2 Delivery O2 Flow Rate FiO2 05/08/25 21:00 98.3 108 16 113/76 (88) 94 98.3 05/08/25 19:44 Room Air 05/08/25 19:44 0 21 Physical Exam GE: in no distress CVS: S1S2+ Lungs: clear Abdomen: firm, distended, non-tender, BS+ Labs/Diagnostic Data Labs Test 05/08/25 09:55 05/08/25 03:30 05/07/25 20:40 05/07/25 10:26 Range/Units Ammonia < 10 L 11-32 umol/L White Blood Count 10.5 4.4-10.8 10^3/uL Red Blood Count 3.62 L 4.5-5.90 10^6/uL Hemoglobin 10.7 L 13.5-17.5 g/dL Hematocrit 31.7 L 41.0-53.0 % Mean Corpuscular Volume 87.5 80.0-100.0 fL Mean Corpuscular Hemoglobin 29.6 28.0-32.0 pg Mean Corpuscular Hemoglobin Concent 33.8 32.0-36.0 g/dL Red Cell Distribution Width 19.5 H 11.8-14.3 % Platelet Count 317 140-450 10^3/uL Mean Platelet Volume 8.3 6.9-10.8 fL Neutrophils (%) (Auto) 37.0-80.0 % Lymphocytes (%) (Auto) 10.0-50.0 % Monocytes (%) (Auto) 0.0-12.0 % Basophils (%) (Auto) 0.0-2.0 % Neutrophils # (Auto) 1.6-8.6 10 ^3/uL Lymphocytes # (Auto) 0.4-5.4 10 ^3/uL Monocytes # (Auto) 0-1.3 10 ^3/uL Differential Total Cells Counted 100.0 100 Neutrophils % (Manual) 76 37.0-80.0 Band Neutrophils % (Manual) 0 Lymphocytes % (Manual) 17 10.0-50.0 Monocytes % (Manual) 4 0-12 Eosinophils % (Manual) 3 0-7 Basophils % (Manual) 0 0.0-2.0 Metamyelocytes % (manual) 0 Myelocytes % (Manual) 0 Promyelocytes % (Manual) 0 Blast Cells % (Manual) 0 Reactive Lymphocytes 0 Platelet Estimate Adequate Creatinine 0.69 L 0.700-1.30 mg/dL Glomerular Filtration Rate Calc 107 >90 mL/min Magnesium Level 1.7 1.6-2.6 mg/dL Thyroid Stimulating Hormone (TSH) 2.53 0.55-4.78 uIU/mL Random Vancomycin Level < 3.0 L 5-10 ug/mL Stool Occult Blood Negative Negative Stool Occult Blood Sample #3 Negative Serum Osmolality 269 L 278-298 mOsm/kg Plasma/Serum Blood Alcohol < 3.0 <10 mg/dL Test 05/07/25 04:50 05/06/25 23:05 05/06/25 12:00 05/06/25 11:54 Range/Units Urine Osmolality 142 mOsm/kg Urine Sodium 33 L 40-220 mmol/L Urine Opiates Screen Neg NEGATIVE Urine Fentanyl Screen Neg NEGATIVE Urine Barbiturates Screen Neg NEGATIVE Urine Phencyclidine Screen Neg NEGATIVE Urine Amphetamines Screen Neg NEGATIVE Urine Benzodiazepines Screen Neg NEGATIVE Urine Cocaine Screen Neg NEGATIVE Urine Cannabinoids Screen Neg NEGATIVE Eosinophils (%) (Auto) 0.7 0.0-7.0 % Eosinophils # (Auto) 0.1 0-0.8 10 ^3/uL Basophils # (Auto) 0.1 0-0.2 10 ^3/uL Nucleated Red Blood Cells 0.0 % Sodium Level 126 #L 136-145 mmol/L Potassium Level 4.7 3.5-5.1 mmol/L Chloride Level 94 L 98-107 mmol/L Carbon Dioxide Level 25 20-31 mmol/L Anion Gap 7 5-15 Blood Urea Nitrogen 14 9-23 mg/dL BUN/Creatinine Ratio 14.6 10.0-20.0 Serum Glucose 98 74-106 mg/dL Lactic Acid Level 1.4 0.4-2.0 mmol/L Calcium Level 9.4 8.7-10.4 mg/dL Total Bilirubin 1.7 H 0.2-1.0 mg/dL Aspartate Amino Transferase (AST) 330 H <34 U/L Alanine Aminotransferase (ALT) 216 H 7-40 U/L Alkaline Phosphatase 279 H 46-116 U/L Total Protein 7.9 5.7-8.2 g/dL Albumin 3.4 3.2-4.8 g/dL Urine Color Dark-yellow Yellow Urine Clarity Clear Clear Urine pH 6.0 5.0-9.0 Urine Specific Asher 1.027 1.001-1.035 Urine Protein 1+ H Negative Urine Ketones Negative Negative Urine Blood Negative Negative /uL Urine Nitrite Negative Negative Urine Bilirubin 1+ Negative Urine Urobilinogen 12 H Negative mg/dL Urine Leukocyte Esterase Negative Negative /uL Urine RBC 1 0 - 3 /hpf Urine Microscopic WBC 3 0-3 /HPF Urine Squamous Epithelial Cells None seen <5 /hpf Urine Bacteria None seen None Seen /hpf Urine Glucose Normal Normal mg/dL Anisocytosis (manual) Moderate Prothrombin Time 12.9 H 9.3-11.8 sec Prothrombin Time INR 1.24 H 0.9-1.15 Activated Partial Thromboplast Time 36.9 H 24.5-34.5 SEC Lipase 89 H 12-53 U/L Microbiology Date/Time Source Procedure Growth Status 05/07/25 11:30 Nose Gram Stain - Final Resulted 05/07/25 11:30 Nose Wound Culture - Preliminary Resulted 05/06/25 23:05 Blood Blood Culture - Preliminary NO GROWTH AFTER 24 HOURS OF INCUBATION. Resulted Assessment #Abdominal pain #Alcoholic cirrhosis, MELD Na 10 Last alcohol drink 6 yrs ago per pt #Liver cancer per pt, declined chemoXRT treatment as suggested in [place] #Meth abuse -Monitor Hb, keep >7 -Reviewed imaging studies, small ascites noted -Strict bowel regimen noted -Avoid NSAIDs/raw seafood or shell fish -Hepatology/Oncology f/u as out pt for further treatment if pt agreeable. If prefers no treatment, consider palliative care consult and goals of care -OLT eval as out pt. Thank you for the consult Plan discussed with: Patient SEVEN BAILEY MD May 08, 2025 23:12
[2025-05-09] VITALS (13 sets, daily range): BP systolic 103–123; BP diastolic 64–80; PULSE 83–121; RESP 12–22; TEMP 98.8–99.9; O2SAT 90–100
[2025-05-09 07:21] LABS: Basophils # (auto) 0 10 ^3/uL (0-0.2); Basophils % (auto) 0.5 % (0.0-2.0); Eosinophils # (auto) 0.1 10 ^3/uL (0-0.8); Eosinophils % (auto) 0.9 % (0.0-7.0); Hematocrit 29.6 % (41.0-53.0); Hemoglobin 10.3 g/dL (13.5-17.5); Lymphocytes # (auto) 0.8 10 ^3/uL (0.4-5.4); Lymphocytes % (auto) 9.5 % (10.0-50.0); Mean Corpuscular Hemoglobin 30.2 pg (28.0-32.0); Mean Corpuscular Hgb Conc. 34.6 g/dL (32.0-36.0); Mean Corpuscular Volume 87.3 fL (80.0-100.0); Monocytes % (auto) 10.9 % (0.0-12.0); Neutrophils # (auto) 6.8 10 ^3/uL (1.6-8.6); Neutrophils % (auto) 78.2 % (37.0-80.0); Platelet Count (auto) 286 10^3/uL (140-450); Red Blood Cells 3.39 10^6/uL (4.5-5.90); Red Cell Distribution Width 19.5 % (11.8-14.3); White Blood Cell 8.7 10^3/uL (4.4-10.8)
[2025-05-09 08:05] LABS: Alanine Aminotransferase 164 U/L (7-40); Albumin 2.8 g/dL (3.2-4.8); Alkaline Phosphatase 209 U/L (46-116); Anion Gap 9 (5-15); Aspartate Aminotransferase 247 U/L (<34); BUN/Creatinine Ratio 21.1 (10.0-20.0); Bilirubin, Total 1.4 mg/dL (0.2-1.0); Blood Urea Nitrogen 12 mg/dL (9-23); Carbon Dioxide 24 mmol/L (20-31); Chloride 91 mmol/L (98-107); Glucose 101 mg/dL (74-106); Magnesium 1.5 mg/dL (1.6-2.6); Potassium 4.2 mmol/L (3.5-5.1); Sodium 124 mmol/L (136-145); Total Protein 6.7 g/dL (5.7-8.2)
[2025-05-09] MEDS: MORPHINE SULFATE INJ 2 MG/ml SYRG IV PRN (09:32)
[2025-05-09 10:36] LABS: Carcinoembryonic Antigen 1.71 ng/mL (<=5.0)
[2025-05-09] MEDS: MAGNESIUM SULFATE 1GM/100ML 100 ML IV ONE (11:11)
[2025-05-09 11:16] LABS: Hepatitis A Ab IgM Negative; Hepatitis B Core IgM Negative (Negative); Hepatitis B Surface Antigen Negative (Negative)
[2025-05-09 11:17] LABS: Hepatitis C Antibody Positive (Negative)
--- NOTE | 2025-05-09 11:51 | DVHPNRES ---
Progress Note Date Seen: May 09, 2025 Resident Creating Document: SHANTELL BERGMAN RESIDENT Medical Necessity Reason Pt with a Central, PICC or Fol: No Subjective Review of Systems Patient seen and examined at the bedside. Discontinued IV fluids, bladder scan WNL. Soft diet. Patient had BM. Abdomen is swollen and distended and tender. Objective vital signs Vital Sign Date Time Temp Pulse Resp B/P (MAP) Pulse Ox O2 Delivery O2 Flow Rate FiO2 05/09/25 10:00 93 Room Air* 0 21 05/09/25 09:39 119/73 05/09/25 09:32 121 16 05/09/25 09:00 99.0 99.0 Total Intake and Output 05/08/25 05/08/25 05/09/25 15:00 23:00 07:00 Intake Total 200 ml 2280 ml 550 ml Output Total 1000 ml 300 ml Balance 200 ml 1280 ml 250 ml medications Current Medications Medications Dose Ordered Sig/Ruba Route Start Time Stop Time Status Last Admin Dose Admin Vancomycin HCl 0 ml @ 0 mls/hr UD IV 05/06/25 22:30 Acetaminophen 650 mg Q8HP PRN PO 05/06/25 22:30 Hold Ondansetron HCl 4 mg Q6HPRN PRN IV 05/06/25 22:30 05/07/25 09:00 4 MG Furosemide 20 mg DAILY IV 05/07/25 10:00 05/09/25 09:39 20 MG Spironolactone 25 mg DAILY PO 05/07/25 10:00 05/09/25 09:39 25 MG Ceftriaxone Sodium/Dextrose 50 ml @ 50 mls/hr DAILY@0000 IV 05/08/25 00:00 05/09/25 00:04 50 MLS/HR Pantoprazole Sodium 40 mg DAILY@0600 PO 05/07/25 06:00 05/09/25 06:05 40 MG Albuterol 2.5 mg Q8HR NEB 05/07/25 06:00 05/07/25 18:41 2.5 MG Ipratropium [place] 0.5 mg Q8HR NEB 05/07/25 06:00 05/08/25 19:44 0.5 MG Silver Sulfadiazine 1 applic BID TOP 05/07/25 22:00 05/09/25 09:40 1 APPLIC Vancomycin HCl 200 ml @ 160 mls/hr Q12H IV 05/08/25 09:45 05/09/25 09:36 160 MLS/HR Acetaminophen/ Hydrocodone Bitart 1 tab Q4HPRN PRN PO 05/08/25 15:30 Hold Morphine Sulfate 1 mg Q4HPRN PRN IV 05/08/25 15:30 05/09/25 09:32 1 MG Examination General: afebrile, palor, mucosae are moist Cardiovascular: Regular S1 and S2. No murmurs, gallops or rubs. No JVD elevation. Bilateral pitting edema Respiratory: Normal B/L air entry on room air. Clear lung sounds on auscultation Abdomen: Mildly hard, tender, distended with hepatosplenomegaly, normoactive bowel sounds, no rebound tenderness Genitourinary: Deferred MSK/skin: Mobilizes 4 limbs. Skin is dry and warm Neurological: No motor, no sensitive deficits, normal speech. Pupils are isocoric and reactive. Psych/Mental Status: A/Ox3. laboratory and microbiology Laboratory Tests 05/09/25 06:21 Test 05/09/25 06:21 Range/Units Serum Glucose 101 74-106 mg/dL Microbiology Date/Time Source Procedure Growth Status 05/07/25 11:30 Nose Gram Stain - Final Resulted 05/07/25 11:30 Nose Wound Culture - Preliminary Resulted 05/06/25 23:05 Blood Blood Culture - Preliminary NO GROWTH AFTER 48 HOURS OF INCUBATION. Resulted Problem List/Assessment/Plan Problem List/Assessment/Plan # Sepsis likely due to skin wounds vs SBP - IV vancomycin and ceftriaxone - Creful use of IV fluids # Acute abdominal pain due to possible SBP # Liver cirrhosis # hepatitis-C positive # Hepatosplenomegaly # H/o liver cancer # Possible portal hypertension # liver cirrhosis MELD-Na 11 # Coagulopathy to liver disease # Possible SBP - US Liver shows: Hepatic cirrhosis with multiple indeterminate hypoechoic masses possibly representing metastatic disease or multifocal HCC. - Trace ascites. - CT abdomen pelvis shows hepatic cirrhosis and sequelae of portal hypertension, splenomegaly, heterogeneous hyperechoic regions in the right hepatic dome passive early post treatment related change, small volume ascites - started on IV ceftriaxone 2 g - abdominal ultrasound pending - Lasix and spironolactone -ordered stool culture, stool WBC, fecal fat quantity to rule out malabsorption # Nasal wound # Sunburn # Wound on the right upper extremity - use sulfasalazine on wound twice daily # Acute on chronic hypoxic respiratory failure # COPD, no exacerbation # Lung fibrosis # Left lower lobe nodule measuring 1.4 cm, possible metastasis - duo nebs q.8 hours - oxygen as needed Hypervolemic hypotonic hyponatremia likely from cirrhosis - iv lasix PUD prophylaxis: Protonix Goals of care discussed with the patient for 19 minutes. Full code Plan discussed with Dr. Dyer Plan discussed with: Patient My Orders My Orders Orders - SHANTELL BERGMAN RESIDENT Procedure Category Date Status Time Fecal Fat Qualitative LAB 05/09/25 Logged 10:25 Stool Bacterial DANIEL 05/09/25 Uncollected Culture 10:28 Stool Wbc LAB 05/09/25 Logged 10:28 Dietary Evaluation Review Recommendations by RD: Protein Supplementation Comments: 1) Initiate Ensure Enlive qd 2) Encourage optimal PO intake 3) Advance to regular diet when medically feasible, pending ST approval 4) Follow-up with oncology 6) Continue to monitor I&O, labs, and skin integrity Expected Outcomes/Goals: 1) appetite and labs to improve 2) wounds to improve 3) diet to advance 4) f/u in 3-5 days Date of Service: May 09, 2025 Billing Provider: MELLY PETE MD Common Visit Codes: [id number] INP/OBS CARE(HIGH) SHANTELL BERGMAN RESIDENT May 09, 2025 11:51 MELLY PETE MD May 16, 2025 10:16
[2025-05-09 12:05] LABS: % Iron Saturation 19.2 % (20-55)
[2025-05-09] MEDS ORDERED: LEVALBUTEROL HCL 1.25 MG/3 ML NEB NEB SCH (18:00)
--- NOTE | 2025-05-09 20:57 | DVHPN2 ---
Progress Note - Dictate Date Seen: May 09, 2025 Medical Necessity Reason Pt with a Central, PICC or Fol: No Subjective No new complaints Tolerating diet Abd distended soft tender vital signs Vital Sign Date Time Temp Pulse Resp B/P (MAP) Pulse Ox O2 Delivery O2 Flow Rate FiO2 05/09/25 18:56 86 16 105/70 05/09/25 17:06 99.9 90 99.9 05/09/25 14:08 Room Air* 0 21 Total Intake and Output 05/08/25 05/08/25 05/09/25 15:00 23:00 07:00 Intake Total 200 ml 2280 ml 550 ml Output Total 1000 ml 300 ml Balance 200 ml 1280 ml 250 ml medications Current Medications Medications Dose Ordered Sig/Ruba Route Start Time Stop Time Status Last Admin Dose Admin Vancomycin HCl 0 ml @ 0 mls/hr UD IV 05/06/25 22:30 Acetaminophen 650 mg Q8HP PRN PO 05/06/25 22:30 Hold Ondansetron HCl 4 mg Q6HPRN PRN IV 05/06/25 22:30 05/07/25 09:00 4 MG Furosemide 20 mg DAILY IV 05/07/25 10:00 05/09/25 09:39 20 MG Spironolactone 25 mg DAILY PO 05/07/25 10:00 05/09/25 09:39 25 MG Ceftriaxone Sodium/Dextrose 50 ml @ 50 mls/hr DAILY@0000 IV 05/08/25 00:00 05/09/25 00:04 50 MLS/HR Pantoprazole Sodium 40 mg DAILY@0600 PO 05/07/25 06:00 05/09/25 06:05 40 MG Ipratropium [place] 0.5 mg Q8HR NEB 05/07/25 06:00 05/09/25 14:08 0.5 MG Silver Sulfadiazine 1 applic BID TOP 05/07/25 22:00 05/09/25 09:40 1 APPLIC Acetaminophen/ Hydrocodone Bitart 1 tab Q4HPRN PRN PO 05/08/25 15:30 Hold Morphine Sulfate 1 mg Q4HPRN PRN IV 05/08/25 15:30 05/09/25 18:26 1 MG Vancomycin HCl 200 ml @ 160 mls/hr Q10H IV 05/09/25 20:00 Levalbuterol HCl 1.25 mg Q8HR NEB 05/09/25 22:00 objective GE: in no distress CVS: S1S2+ Lungs: clear Abdomen: firm, distended, non-tender, BS+ laboratory and microbiology Laboratory Tests 05/09/25 06:21 Test 05/09/25 06:21 Range/Units Serum Glucose 101 74-106 mg/dL Abd USG IMPRESSION: Hepatic cirrhosis with multiple indeterminate hypoechoic masses possibly representing metastatic disease or multifocal HCC. Trace ascites. Gallbladder polyp is present measuring 0.[address] ABD PELVIS IMPRESSION: Hepatic cirrhosis and sequelae of portal hypertension. Presumed posttreatment related change in the posterior right hepatic dome. Fibrotic changes in the lung bases. Indeterminate 1.4 cm nodule in the left lower lobe. 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 - Trace ascites. - CT abdomen pelvis shows hepatic cirrhosis and sequelae of portal hypertension, splenomegaly, heterogeneous hyperechoic regions in the right hepatic dome passive early post treatment related change, small volume ascites - started on IV ceftriaxone 2 g - Lasix and spironolactone -ordered stool culture, stool WBC, fecal fat quantity Check Serum alpha feto protein If ascites worsens then paracentesis Prognosis remains guarded ; will discuss possible hospice care Dietary Evaluation Review Recommendations by RD: Protein Supplementation Comments: 1) Initiate Ensure Enlive qd 2) Encourage optimal PO intake 3) Advance to regular diet when medically feasible, pending ST approval 4) Follow-up with oncology 6) Continue to monitor I&O, labs, and skin integrity Expected Outcomes/Goals: 1) appetite and labs to improve 2) wounds to improve 3) diet to advance 4) f/u in 3-5 days Plan discussed with: Other (None) BATOOL ZABALA MD May 09, 2025 20:57
[2025-05-09] MEDS: VANCOMYCIN 1GM/200ML PM 200 ML IV SCH (21:10)
[2025-05-09] MEDS: LEVALBUTEROL HCL 1.25 MG/3 ML NEB NEB SCH (22:23)
[2025-05-10] VITALS (13 sets, daily range): BP systolic 101–121; BP diastolic 68–76; PULSE 74–99; RESP 16–20; TEMP 98–100.4; O2SAT 90–100
[2025-05-10 06:38] LABS: Hematocrit 30.6 % (41.0-53.0); Hemoglobin 10.6 g/dL (13.5-17.5); Mean Corpuscular Hgb Conc. 34.5 g/dL (32.0-36.0); Mean Corpuscular Volume 86.9 fL (80.0-100.0); Platelet Count (auto) 289 10^3/uL (140-450); Red Blood Cells 3.52 10^6/uL (4.5-5.90); Red Cell Distribution Width 19.8 % (11.8-14.3); White Blood Cell 9.8 10^3/uL (4.4-10.8)
[2025-05-10 06:40] LABS: Basophils % (manual) 0 (0.0-2.0); Blast Cells 0; Eosinophils % (manual) 0 (0-7); Metamyelocytes % 0; Promyelocytes % 0; Reactive Lymphocytes 0
[2025-05-10 06:42] LABS: Anion Gap 9 (5-15); BUN/Creatinine Ratio 21.8 (10.0-20.0); Blood Urea Nitrogen 12 mg/dL (9-23); Carbon Dioxide 23 mmol/L (20-31); Glucose 78 mg/dL (74-106); Potassium 4.2 mmol/L (3.5-5.1); Total Protein 6.8 g/dL (5.7-8.2)
[2025-05-10 06:43] LABS: Alanine Aminotransferase 174 U/L (7-40); Alkaline Phosphatase 241 U/L (46-116); Aspartate Aminotransferase 257 U/L (<34); Calcium 8.3 mg/dL (8.7-10.4); Chloride 91 mmol/L (98-107); Sodium 123 mmol/L (136-145)
[2025-05-10 06:44] LABS: Albumin 2.9 g/dL (3.2-4.8); Bilirubin, Total 1.3 mg/dL (0.2-1.0)
[2025-05-10 08:07] LABS: Carbohydrate Antigen 19-9 93 U/mL (0-35)
[2025-05-10 08:17] LABS: Band Neutrophils % (manual) 1; Monocytes % (manual) 6 (0-12); Myelocytes % 2
[2025-05-10 08:18] LABS: Anisocytosis Slight; Large Platelets FEW; Lymphocytes % (manual) 11 (10.0-50.0); Platelet Estimate Adequate; Target Cell MODERATE
[2025-05-10] MEDS: MORPHINE SULFATE INJ 2 MG/ml SYRG IV PRN ×2 (10:15→17:31)
--- NOTE | 2025-05-10 10:24 | MEDREC ---
[facility] ASP Intervention Section I [facility] ASP Intervention: Deescalate AB based on CS (PLEASE CONSIDER DE-ESCALATION BASED ON CULTURE RESULTS (D/C VANCOMYCIN) ) ANDERS TRACEY PHARMACIST May 10, 2025 10:24
--- NOTE | 2025-05-10 11:32 | DVHPNRES ---
Progress Note Date Seen: May 10, 2025 Resident Creating Document: SHANTELL BERGMAN RESIDENT Medical Necessity Reason Pt with a Central, PICC or Fol: No Subjective Review of Systems Pt was seen amd examined at bed side, complaining of Severe abd pain, 10/10, start Dilaudid 1 mg q4 hrs, Abd was distended orderd Abd USG, pt refusing cancer treatment and wants palliative/hospice care. Objective vital signs Vital Sign Date Time Temp Pulse Resp B/P (MAP) Pulse Ox O2 Delivery O2 Flow Rate FiO2 05/10/25 10:15 82 16 107/67 05/10/25 09:06 100.4 90 100.4 05/10/25 05:21 Room Air 0.0 05/10/25 05:21 21 Total Intake and Output 05/09/25 05/09/25 05/10/25 15:00 23:00 07:00 Intake Total 420 ml 950 ml 1050 ml Output Total 1350 ml 475 ml Balance 420 ml -400 ml 575 ml medications Current Medications Medications Dose Ordered Sig/Ruba Route Start Time Stop Time Status Last Admin Dose Admin Acetaminophen 650 mg Q8HP PRN PO 05/06/25 22:30 Hold Ondansetron HCl 4 mg Q6HPRN PRN IV 05/06/25 22:30 05/07/25 09:00 4 MG Furosemide 20 mg DAILY IV 05/07/25 10:00 05/10/25 09:23 20 MG Spironolactone 25 mg DAILY PO 05/07/25 10:00 05/10/25 09:24 25 MG Ceftriaxone Sodium/Dextrose 50 ml @ 50 mls/hr DAILY@0000 IV 05/08/25 00:00 05/10/25 00:15 50 MLS/HR Pantoprazole Sodium 40 mg DAILY@0600 PO 05/07/25 06:00 05/10/25 06:02 40 MG Ipratropium [place] 0.5 mg Q8HR NEB 05/07/25 06:00 05/09/25 22:23 0.5 MG Silver Sulfadiazine 1 applic BID TOP 05/07/25 22:00 05/10/25 09:24 1 APPLIC Acetaminophen/ Hydrocodone Bitart 1 tab Q4HPRN PRN PO 05/08/25 15:30 Hold Levalbuterol HCl 1.25 mg Q8HR NEB 05/09/25 22:00 05/09/25 22:23 1.25 MG Hydromorphone HCl 1 mg Q4HPRN PRN IV 05/10/25 11:00 Examination General: afebrile, palor, mucosae are moist Cardiovascular: Regular S1 and S2. No murmurs, gallops or rubs. No JVD elevation. Bilateral pitting edema Respiratory: Normal B/L air entry on room air. Clear lung sounds on auscultation Abdomen: Mildly hard, tender, distended with hepatosplenomegaly, normoactive bowel sounds, no rebound tenderness Genitourinary: Deferred MSK/skin: Mobilizes 4 limbs. Skin is dry and warm Neurological: No motor, no sensitive deficits, normal speech. Pupils are isocoric and reactive. Psych/Mental Status: A/Ox3. laboratory and microbiology Laboratory Tests 05/10/25 04:57 Test 05/10/25 04:57 Range/Units Serum Glucose 78 74-106 mg/dL Microbiology Date/Time Source Procedure Growth Status 05/07/25 11:30 Nose Gram Stain - Final Resulted 05/07/25 11:30 Nose Wound Culture - Preliminary Resulted 05/06/25 23:05 Blood Blood Culture - Preliminary NO GROWTH AFTER 72 HOURS OF INCUBATION. Resulted Problem List/Assessment/Plan Problem List/Assessment/Plan # Sepsis likely due to skin wounds vs SBP - IV ceftriaxone, D/C vancomycin as per culture result. 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 - Trace ascites. - CT abdomen pelvis shows hepatic cirrhosis and sequelae of portal hypertension, splenomegaly, heterogeneous hyperechoic regions in the right hepatic dome passive early post treatment related change, small volume ascites - started on IV ceftriaxone 2 g - repeat abdominal ultrasound ordered today - I/R consult for possible Parenthesis - Lasix and spironolactone -ordered stool culture, stool WBC, fecal fat quantity to rule out malabsorption # Nasal wound # Sunburn # Wound on the right upper extremity - use sulfasalazine on wound twice daily # Acute on chronic hypoxic respiratory failure # COPD, no exacerbation # Lung fibrosis # Left lower lobe nodule measuring 1.4 cm, possible metastasis - duo nebs q.8 hours - oxygen as needed Hypervolemic hypotonic hyponatremia likely from cirrhosis - iv lasix - start Dilaudid 1 mg q4 hrs, Abd was distended ordered Abd USG, pt refusing cancer treatment and wants palliative/hospice care. PUD prophylaxis: Protonix Goals of care discussed with the patient for 31 minutes. Full code Plan discussed with Dr. Dyer Plan discussed with: Patient My Orders My Orders Orders - SHANTELL BERGMAN RESIDENT Procedure Category Date Status Time Abdomen Limited US 05/10/25 Taken 10:53 * Radiologist Consult CONS 05/10/25 Transmitted 10:54 Hydromorphone PHA 05/10/25 In Process Injection (Dilaudid 11:00 Dietary Evaluation Review Recommendations by RD: Protein Supplementation Comments: 1) Initiate Ensure Enlive qd 2) Encourage optimal PO intake 3) Advance to regular diet when medically feasible, pending ST approval 4) Follow-up with oncology 6) Continue to monitor I&O, labs, and skin integrity Expected Outcomes/Goals: 1) appetite and labs to improve 2) wounds to improve 3) diet to advance 4) f/u in 3-5 days Date of Service: May 10, 2025 Billing Provider: MELLY PETE MD Common Visit Codes: [id number] INP/OBS CARE(HIGH) SHANTELL BERGMAN RESIDENT May 10, 2025 11:32 MELLY PETE MD May 16, 2025 10:22
--- NOTE | 2025-05-10 11:37 | DVH ---
ULTRASOUND ABDOMEN limited, 4 QUADRANTS INDICATION: Acites Evaluate for ascites. TECHNIQUE: The four quadrants of the abdomen were scanned in dmoingo-scale to assess for the presence of ascites. N o solid organ assessment was performed. FINDINGS/IMPRESSIONS: Small volume ascities.
[2025-05-10 13:07] LABS: AFP Serum Tumor Marker AFP ng/mL (0.0-8.4)
[2025-05-10] MEDS: HYDROmorphone HCL 2 MG/ML VL/or syr IV PRN (13:58)
[2025-05-10] MEDS: KETOROLAC TROMETH 30 MG/ML 1ML VIAL IV ONE (18:01)
[2025-05-10] MEDS: BACLOFEN 10 MG TAB PO ONE (18:01)
[2025-05-10] MEDS ORDERED: traZODone HCL 50 MG TAB PO PRN (18:15)
--- NOTE | 2025-05-10 18:24 | DVHNC2 ---
Other Procedure Procedure Paracentesis Indication Ascites Informed consent obtained: Yes Risks, benefits, and alternati: Yes Notes INDICATION: Ascites PROCEDURE OPERA SINGER: Dr. Nikos [place] resident ATTENDING PHYSICIAN: _ In Attendance (Y/N) Yes Ultrasound used to emerita location: Y/N PROCEDURE SUMMARY: A time-out was performed. My hands were washed immediately prior to the procedure. I wore a surgical cap, mask with protective eyewear, sterile gown and sterile gloves throughout the procedure. The area was cleansed and draped in usual sterile fashion using chlorhexidine scrub. Anesthesia was achieved with 1% lidocaine. The right lower quadrant of the abdomen was prepped and draped in a sterile fashion using chlorhexidine scrub. 1% lidocaine was used to numb the skin, soft tissue and peritoneum. The paracentesis catheter was inserted and advanced with negative pressure until yellowish colored fluid was aspirated. Approximately 60 mL of ascitic fluid was collected and sent for laboratory analysis. The catheter was then connected to the vaccutainer and 1.2 liters of additional ascitic fluid were drained. The catheter was removed and no leaking was noted. A bandaid was placed over the puncture wound. The patient tolerated the procedure well without any immediate complications. Estimated blood loss was 5cc. Date of Service: May 10, 2025 Billing Provider: MELLY PETE MD Cardiology Common Codes: PROCEDURE ONLY Date of Service: May 10, 2025 Billing Provider: MELLY PETE MD Common Visit Codes: PROCEDURE ONLY Procedure Codes: [id number] W/IMAGING LETICIA REECE May 10, 2025 18:23 MELLY PETE MD May 16, 2025 10:21
--- NOTE | 2025-05-10 21:01 | DVHPN2 ---
Progress Note - Dictate Date Seen: May 10, 2025 Medical Necessity Reason Pt with a Central, PICC or Fol: No Subjective Patient seen at bedside; patient complained of abdominal distention and stretching of his abdomen And he underwent a bedside ultrasound which showed evidence of some fluid in the abdomen He underwent a paracentesis this evening and 1.2 L of fluid was removed AFP level very high [id number] related to likely due to HCC vital signs Vital Sign Date Time Temp Pulse Resp B/P (MAP) Pulse Ox O2 Delivery O2 Flow Rate FiO2 05/10/25 18:24 68 16 106/67 05/10/25 17:00 98.6 96 98.6 05/10/25 13:03 Room Air 05/10/25 13:03 0 21 Total Intake and Output 05/09/25 05/09/25 05/10/25 15:00 23:00 07:00 Intake Total 420 ml 950 ml 1050 ml Output Total 1350 ml 475 ml Balance 420 ml -400 ml 575 ml medications Current Medications Medications Dose Ordered Sig/Ruba Route Start Time Stop Time Status Last Admin Dose Admin Acetaminophen 650 mg Q8HP PRN PO 05/06/25 22:30 Hold Ondansetron HCl 4 mg Q6HPRN PRN IV 05/06/25 22:30 05/07/25 09:00 4 MG Furosemide 20 mg DAILY IV 05/07/25 10:00 05/10/25 09:23 20 MG Spironolactone 25 mg DAILY PO 05/07/25 10:00 05/10/25 09:24 25 MG Ceftriaxone Sodium/Dextrose 50 ml @ 50 mls/hr DAILY@0000 IV 05/08/25 00:00 05/10/25 00:15 50 MLS/HR Pantoprazole Sodium 40 mg DAILY@0600 PO 05/07/25 06:00 05/10/25 06:02 40 MG Ipratropium [place] 0.5 mg Q8HR NEB 05/07/25 06:00 05/10/25 20:19 0.5 MG Silver Sulfadiazine 1 applic BID TOP 05/07/25 22:00 05/10/25 09:24 1 APPLIC Acetaminophen/ Hydrocodone Bitart 1 tab Q4HPRN PRN PO 05/08/25 15:30 Hold Levalbuterol HCl 1.25 mg Q8HR NEB 05/09/25 22:00 05/10/25 20:19 1.25 MG Morphine Sulfate 2 mg Q4HPRN PRN IV 05/10/25 16:45 05/10/25 17:31 2 MG Trazodone HCl 50 mg HS PRN PO 05/10/25 18:15 objective GE: in no distress CVS: S1S2+ Lungs: clear Abdomen: firm, distended, non-tender, BS+ laboratory and microbiology Laboratory Tests 05/10/25 04:57 Test 05/10/25 04:57 Range/Units Serum Glucose 78 74-106 mg/dL Problems(with codes): (1) Abnormal finding on GI tract imaging (2) Ascites (3) Intractable abdominal pain (4) Liver cirrhosis (5) Acute pancreatitis (6) Hepatocellular carcinoma Prognosis PLAN Patient at this point does not want any treatment but mostly comfort measures and hospice Patient is requesting pain medicine and anti spasm removed medications Overall his prognosis is guarded especially as he may be likely to reaccumulate ascites in the near future Dietary Evaluation Review Recommendations by RD: Protein Supplementation Comments: 1) Initiate Ensure Enlive qd 2) Encourage optimal PO intake 3) Advance to regular diet when medically feasible, pending ST approval 4) Follow-up with oncology 6) Continue to monitor I&O, labs, and skin integrity Expected Outcomes/Goals: 1) appetite and labs to improve 2) wounds to improve 3) diet to advance 4) f/u in 3-5 days Plan discussed with: Patient, Other (Dr Dyer) BATOOL ZABALA MD May 10, 2025 21:01
[2025-05-11] VITALS (12 sets, daily range): BP systolic 95–130; BP diastolic 63–77; PULSE 51–107; RESP 16–22; TEMP 97.7–98.5; O2SAT 90–100
[2025-05-11 01:35] LABS: Body Fluid Red Blood Cells 2462 CUMM (0-2000); Body Fluid White Blood Cells 12070 CUMM (0-200)
[2025-05-11 09:57] LABS: White Blood Cell 10.1 10^3/uL (4.4-10.8)
[2025-05-11 10:00] LABS: Hematocrit 35.6 % (41.0-53.0); Hemoglobin 12.2 g/dL (13.5-17.5); Mean Corpuscular Hemoglobin 30.2 pg (28.0-32.0); Mean Corpuscular Hgb Conc. 34.3 g/dL (32.0-36.0); Platelet Count (auto) 463 10^3/uL (140-450); Red Blood Cells 4.05 10^6/uL (4.5-5.90)
[2025-05-11 10:02] LABS: Basophils % (manual) 0 (0.0-2.0); Blast Cells 0; Metamyelocytes % 0; Promyelocytes % 0; Reactive Lymphocytes 0
[2025-05-11 10:10] LABS: Anion Gap 10 (5-15); BUN/Creatinine Ratio 28.6 (10.0-20.0); Calcium 9.2 mg/dL (8.7-10.4); Carbon Dioxide 24 mmol/L (20-31); Chloride 89 mmol/L (98-107); Glucose 150 mg/dL (74-106); Potassium 4.7 mmol/L (3.5-5.1); Sodium 123 mmol/L (136-145); Total Protein 7.5 g/dL (5.7-8.2)
[2025-05-11 10:11] LABS: Alanine Aminotransferase 157 U/L (7-40); Albumin 3.1 g/dL (3.2-4.8); Alkaline Phosphatase 231 U/L (46-116); Aspartate Aminotransferase 287 U/L (<34); Bilirubin, Total 1.9 mg/dL (0.2-1.0); Blood Urea Nitrogen 24 mg/dL (9-23)
[2025-05-11 11:31] LABS: Band Neutrophils % (manual) 3; Eosinophils % (manual) 1 (0-7); Lymphocytes % (manual) 11 (10.0-50.0); Monocytes % (manual) 2 (0-12); Myelocytes % 2
[2025-05-11 11:32] LABS: Platelet Estimate Increased
--- NOTE | 2025-05-11 11:45 | DVH ---
CHEST RADIOGRAPH Indication: Pleural effusion, PNA Technique: Single frontal view of the chest was obtained COMPARISON: None FINDINGS: The cardiac silhouette is enlarged. The lungs demonstrate bilateral patchy airspace opacities. The pu lmonary vasculature is prominent. Small right pleural effusion. Interstitial airspace opacities which could represent sequela of pulmonary edema, atypical infection, chronic lung changes/disease.There i s no pneumothorax. IMPRESSION: As above
[2025-05-11] MEDS: HYDROcodone-ACET 10/325MG TAB PO ONE (13:46)
--- NOTE | 2025-05-11 17:11 | DVHPNRES ---
Progress Note Date Seen: May 11, 2025 Resident Creating Document: SHANTELL BERGMAN RESIDENT Medical Necessity Reason Pt with a Central, PICC or Fol: No Subjective Review of Systems Pt was seen and examined at bed side, complaining of abd pain, Patient had parenthesis yesterday evening 1.2 L fluid removed. Sent sample to the lab. Objective vital signs Vital Sign Date Time Temp Pulse Resp B/P (MAP) Pulse Ox O2 Delivery O2 Flow Rate FiO2 05/11/25 16:36 97.9 107 17 106/66 (79) 90 97.9 05/11/25 14:08 Room Air 0.0 05/11/25 14:08 21 Total Intake and Output 05/10/25 05/10/25 05/11/25 15:00 23:00 07:00 Intake Total 200 ml 675 ml 280 ml Output Total 753 ml 200 ml Balance 200 ml -78 ml 80 ml medications Current Medications Medications Dose Ordered Sig/[place]uba Route Start Time Stop Time Status Last Admin Dose Admin Acetaminophen 650 mg Q8HP PRN PO 05/06/25 22:30 Hold Ondansetron HCl 4 mg Q6HPRN PRN IV 05/06/25 22:30 05/07/25 09:00 4 MG Furosemide 20 mg DAILY IV 05/07/25 10:00 05/11/25 10:11 20 MG Spironolactone 25 mg DAILY PO 05/07/25 10:00 05/11/25 10:11 25 MG Ceftriaxone Sodium/Dextrose 50 ml @ 50 mls/hr DAILY@0000 IV 05/08/25 00:00 05/11/25 05:07 50 MLS/HR Pantoprazole Sodium 40 mg DAILY@0600 PO 05/07/25 06:00 05/11/25 06:56 40 MG Ipratropium [place] 0.5 mg Q8HR NEB 05/07/25 06:00 05/11/25 14:08 0.5 MG Silver Sulfadiazine 1 applic BID TOP 05/07/25 22:00 05/11/25 10:12 1 APPLIC Acetaminophen/ Hydrocodone Bitart 1 tab Q4HPRN PRN PO 05/08/25 15:30 Hold Levalbuterol HCl 1.25 mg Q8HR NEB 05/09/25 22:00 05/11/25 14:08 1.25 MG Morphine Sulfate 2 mg Q4HPRN PRN IV 05/10/25 16:45 05/11/25 14:58 2 MG Trazodone HCl 50 mg HS PRN PO 05/10/25 18:15 Examination General: afebrile, palor, mucosae are moist Cardiovascular: Regular S1 and S2. No murmurs, gallops or rubs. No JVD elevation. Bilateral pitting edema Respiratory: Normal B/L air entry on room air. Clear lung sounds on auscultation Abdomen: Mildly hard, tender, distended with hepatosplenomegaly, normoactive bowel sounds, no rebound tenderness Genitourinary: Deferred MSK/skin: Mobilizes 4 limbs. Skin is dry and warm Neurological: No motor, no sensitive deficits, normal speech. Pupils are isocoric and reactive. Psych/Mental Status: A/Ox3. laboratory and microbiology Laboratory Tests 05/11/25 09:24 Test 05/11/25 09:24 Range/Units Serum Glucose 150 H 74-106 mg/dL Microbiology Date/Time Source Procedure Growth Status 05/11/25 00:00 Ascities Fluid Gram Stain - Final Resulted 05/11/25 00:00 Ascities Fluid Body Fluid Culture Pending Resulted 05/07/25 11:30 Nose Gram Stain - Final Complete 05/07/25 11:30 Nose Wound Culture - Final Complete 05/06/25 23:05 Blood Blood Culture - Preliminary NO GROWTH AFTER 72 HOURS OF INCUBATION. Resulted Problem List/Assessment/Plan Problem List/Assessment/Plan # Sepsis likely due to skin wounds vs SBP - IV ceftriaxone, D/C vancomycin as per culture result. 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 - Trace ascites. - CT abdomen pelvis shows hepatic cirrhosis and sequelae of portal hypertension, splenomegaly, heterogeneous hyperechoic regions in the right hepatic dome passive early post treatment related change, small volume ascites - started on IV ceftriaxone 2 g - repeat abdominal ultrasound ordered today - I/R consult for possible Parenthesis - Lasix and spironolactone -ordered stool culture, stool WBC, fecal fat quantity to rule out malabsorption Patient had parenthesis yesterday evening 1.2 L fluid removed. Sent sample to the lab. # Nasal wound # Sunburn # Wound on the right upper extremity - use sulfasalazine on wound twice daily # Acute on chronic hypoxic respiratory failure # COPD, no exacerbation # Lung fibrosis # Left lower lobe nodule measuring 1.4 cm, possible metastasis - duo nebs q.8 hours - oxygen as needed Hypervolemic hypotonic hyponatremia likely from cirrhosis - iv lasix - start Dilaudid 1 mg q4 hrs, Abd was distended ordered Abd USG, pt refusing cancer treatment and wants palliative/hospice care. PUD prophylaxis: Protonix Goals of care discussed with the patient for 18 minutes. Full code Plan discussed with Dr. Dyer Plan discussed with: Patient My Orders My Orders Orders - SHANTELL BERGMAN RESIDENT Procedure Category Date Status Time Chest Portable XY 05/11/25 Resulted 09:40 * Psychiatric Clinician CONS 05/11/25 Transmitted Consult Cytology DANIEL 05/11/25 Transmitted 11:25 Dietary Evaluation Review Recommendations by RD: Protein Supplementation Comments: 1) Initiate Ensure Enlive qd 2) Encourage optimal PO intake 3) Advance to regular diet when medically feasible, pending ST approval 4) Follow-up with oncology 6) Continue to monitor I&O, labs, and skin integrity Expected Outcomes/Goals: 1) appetite and labs to improve 2) wounds to improve 3) diet to advance 4) f/u in 3-5 days Date of Service: May 11, 2025 Billing Provider: MELLY PETE MD Common Visit Codes: [id number] INP/OBS CARE(HIGH) SHANTELL BERGMAN May 11, 2025 17:11 MELLY PETE MD May 16, 2025 10:24
[2025-05-11] MEDS ORDERED: MELATONIN 5 MG TAB PO SCH (22:00)
--- NOTE | 2025-05-11 22:18 | DVHPN2 ---
Progress Note - Dictate Date Seen: May 11, 2025 Medical Necessity Reason Pt with a Central, PICC or Fol: No Subjective No new complaints Patient is refusing scheduled medications and respiratory treatments He underwent a paracentesis yesterday and 1.2 L of fluid was removed AFP level very high [phone] related to likely due to HCC vital signs Vital Sign Date Time Temp Pulse Resp B/P (MAP) Pulse Ox O2 Delivery O2 Flow Rate FiO2 05/11/25 22:10 90 Room Air* 0 21 05/11/25 21:00 97.7 98 20 117/77 (90) 97.7 Total Intake and Output 05/10/25 05/10/25 05/11/25 14:59 22:59 06:59 Intake Total 200 ml 675 ml 280 ml Output Total 753 ml 200 ml Balance 200 ml -78 ml 80 ml medications Current Medications Medications Dose Ordered Sig/[place] Route Start Time Stop Time Status Last Admin Dose Admin Acetaminophen 650 mg Q8HP PRN PO 05/06/25 22:30 Hold Ondansetron HCl 4 mg Q6HPRN PRN IV 05/06/25 22:30 05/07/25 09:00 4 MG Furosemide 20 mg DAILY IV 05/07/25 10:00 05/11/25 10:11 20 MG Spironolactone 25 mg DAILY PO 05/07/25 10:00 05/11/25 10:11 25 MG Ceftriaxone Sodium/Dextrose 50 ml @ 50 mls/hr DAILY@0000 IV 05/08/25 00:00 05/11/25 05:07 50 MLS/HR Pantoprazole Sodium 40 mg DAILY@0600 PO 05/07/25 06:00 05/11/25 06:56 40 MG Ipratropium [place] 0.5 mg Q8HR NEB 05/07/25 06:00 05/11/25 14:08 0.5 MG Silver Sulfadiazine 1 applic BID TOP 05/07/25 22:00 05/11/25 21:51 1 APPLIC Acetaminophen/ Hydrocodone Bitart 1 tab Q4HPRN PRN PO 05/08/25 15:30 Hold Levalbuterol HCl 1.25 mg Q8HR NEB 05/09/25 22:00 05/11/25 14:08 1.25 MG Morphine Sulfate 2 mg Q4HPRN PRN IV 05/10/25 16:45 05/11/25 19:50 2 MG Trazodone HCl 50 mg HS PRN PO 05/10/25 18:15 objective GE: in no distress CVS: S1S2+ Lungs: clear Abdomen: firm, distended, non-tender, BS+ laboratory and microbiology Laboratory Tests 05/11/25 09:24 Test 05/11/25 09:24 Range/Units Serum Glucose 150 H 74-106 mg/dL Problems(with codes): (1) Hepatocellular carcinoma (2) Abnormal finding on GI tract imaging (3) Ascites (4) Intractable abdominal pain (5) Liver cirrhosis Prognosis Plan Continue diet as tolerated Supportive care Patient does not want aggressive treatment Possible discharge with hospice We can arrange regular outpatient paracentesis as required Dietary Evaluation Review Recommendations by RD: Protein Supplementation Comments: 1) Initiate Ensure Enlive qd 2) Encourage optimal PO intake 3) Advance to regular diet when medically feasible, pending ST approval 4) Follow-up with oncology 6) Continue to monitor I&O, labs, and skin integrity Expected Outcomes/Goals: 1) appetite and labs to improve 2) wounds to improve 3) diet to advance 4) f/u in 3-5 days Plan discussed with: Patient, Other BATOOL ZABALA MD May 11, 2025 22:18
[2025-05-12] VITALS (11 sets, daily range): BP systolic 103–125; BP diastolic 69–76; PULSE 66–91; RESP 16–19; TEMP 97.1–98.9; O2SAT 91–100
[2025-05-12 07:47] LABS: Hemoglobin 13.4 g/dL (13.5-17.5)
[2025-05-12 07:49] LABS: Hematocrit 39.5 % (41.0-53.0); Mean Corpuscular Hemoglobin 29.8 pg (28.0-32.0); Mean Corpuscular Hgb Conc. 33.9 g/dL (32.0-36.0); Mean Corpuscular Volume 88.2 fL (80.0-100.0); Platelet Count (auto) 453 10^3/uL (140-450); Red Blood Cells 4.47 10^6/uL (4.5-5.90); White Blood Cell 16.7 10^3/uL (4.4-10.8)
[2025-05-12 07:51] LABS: Basophils % (manual) 0 (0.0-2.0); Blast Cells 0; Metamyelocytes % 0; Myelocytes % 0; Promyelocytes % 0; Reactive Lymphocytes 0
[2025-05-12 07:52] LABS: Anion Gap 11 (5-15); BUN/Creatinine Ratio 27.3 (10.0-20.0); Calcium 9.6 mg/dL (8.7-10.4); Carbon Dioxide 23 mmol/L (20-31); Glucose 80 mg/dL (74-106); Total Protein 7.5 g/dL (5.7-8.2)
[2025-05-12 07:56] LABS: Chloride 86 mmol/L (98-107); Sodium 120 mmol/L (136-145)
[2025-05-12 07:58] LABS: Alanine Aminotransferase 400 U/L (7-40); Alkaline Phosphatase 246 U/L (46-116); Aspartate Aminotransferase 629 U/L (<34); Bilirubin, Total 2.4 mg/dL (0.2-1.0); Blood Urea Nitrogen 35 mg/dL (9-23)
[2025-05-12 08:02] LABS: Potassium 5.7 mmol/L (3.5-5.1)
[2025-05-12 08:31] LABS: Band Neutrophils % (manual) 14; Eosinophils % (manual) 1 (0-7); Lymphocytes % (manual) 16 (10.0-50.0); Monocytes % (manual) 2 (0-12)
[2025-05-12 08:32] LABS: Platelet Estimate Increased
[2025-05-12] MEDS ORDERED: HYDROcodone-ACET 5/325MG TAB PO PRN (10:00)
[2025-05-12] MEDS: HYDROmorphone HCL 2 MG/ML VL/or syr IV PRN (10:23)
[2025-05-12 11:07] LABS: Albumin, Body Fluid 1.1 g/dL (Not Estab.); Protein, Body Fluid 2.7 g/dL (.)
[2025-05-13] VITALS (14 sets, daily range): BP systolic 97–113; BP diastolic 61–73; PULSE 61–94; RESP 18–22; TEMP 97.5–98.6; O2SAT 90–100
--- NOTE | 2025-05-13 06:52 | DVHPNRES ---
Progress Note Date Seen: May 12, 2025 Resident Creating Document: SHANTELL BERGMAN RESIDENT Medical Necessity Reason Pt with a Central, PICC or Fol: No Subjective Review of Systems Pt was seen and examined at bed side, complaining of abd pain, abdominal distention, shortness of breath, Objective vital signs Vital Sign Date Time Temp Pulse Resp B/P (MAP) Pulse Ox O2 Delivery O2 Flow Rate FiO2 05/13/25 06:50 65 20 98 05/13/25 06:40 Nasal Cannula 3.0 05/13/25 06:40 32 05/13/25 05:18 113/83 05/13/25 05:00 97.8 97.8 Total Intake and Output 05/12/25 05/12/25 05/13/25 15:00 23:00 07:00 Intake Total 400 ml 150 ml Balance 400 ml 150 ml medications Current Medications Medications Dose Ordered Sig/[place] Route Start Time Stop Time Status Last Admin Dose Admin Acetaminophen 650 mg Q8HP PRN PO 05/06/25 22:30 Hold Ondansetron HCl 4 mg Q6HPRN PRN IV 05/06/25 22:30 05/07/25 09:00 4 MG Furosemide 20 mg DAILY IV 05/07/25 10:00 05/12/25 09:48 20 MG Spironolactone 25 mg DAILY PO 05/07/25 10:00 05/12/25 09:48 25 MG Ceftriaxone Sodium/Dextrose 50 ml @ 50 mls/hr DAILY@0000 IV 05/08/25 00:00 05/13/25 00:45 50 MLS/HR Pantoprazole Sodium 40 mg DAILY@0600 PO 05/07/25 06:00 05/13/25 05:42 40 MG Ipratropium [place] 0.5 mg Q8HR NEB 05/07/25 06:00 05/13/25 06:40 0.5 MG Silver Sulfadiazine 1 applic BID TOP 05/07/25 22:00 05/12/25 23:06 1 APPLIC Levalbuterol HCl 1.25 mg Q8HR NEB 05/09/25 22:00 05/13/25 06:40 1.25 MG Trazodone HCl 50 mg HS PRN PO 05/10/25 18:15 Hydromorphone HCl 1 mg Q4HPRN PRN IV 05/12/25 09:45 05/13/25 04:48 1 MG Acetaminophen/ Hydrocodone Bitart 1 tab Q4HPRN PRN PO 05/12/25 10:00 Examination General: afebrile, palor, mucosae are moist Cardiovascular: Regular S1 and S2. No murmurs, gallops or rubs. No JVD elevation. Bilateral pitting edema Respiratory: Normal B/L air entry on room air. Clear lung sounds on auscultation Abdomen: Mildly hard, tender, distended with hepatosplenomegaly, normoactive bowel sounds, no rebound tenderness Genitourinary: Deferred MSK/skin: Mobilizes 4 limbs. Skin is dry and warm Neurological: No motor, no sensitive deficits, normal speech. Pupils are isocoric and reactive. Psych/Mental Status: A/Ox3. laboratory and microbiology Laboratory Tests 05/12/25 06:34 Test 05/12/25 06:34 Range/Units Serum Glucose 80 74-106 mg/dL Microbiology Date/Time Source Procedure Growth Status 05/11/25 00:00 Ascities Fluid Gram Stain - Final Resulted 05/11/25 00:00 Ascities Fluid Body Fluid Culture - Preliminary Resulted 05/07/25 11:30 Nose Gram Stain - Final Complete 05/07/25 11:30 Nose Wound Culture - Final Complete 05/06/25 23:05 Blood Blood Culture - Final NO GROWTH AFTER 5 DAYS OF INCUBATION. Complete Problem List/Assessment/Plan Problem List/Assessment/Plan # Sepsis likely due to skin wounds vs SBP - IV ceftriaxone, D/C vancomycin as per culture result. 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 - Trace ascites. - CT abdomen pelvis shows hepatic cirrhosis and sequelae of portal hypertension, splenomegaly, heterogeneous hyperechoic regions in the right hepatic dome passive early post treatment related change, small volume ascites - started on IV ceftriaxone 2 g - repeat abdominal ultrasound ordered today - I/R consult for possible Parenthesis - Lasix and spironolactone -ordered stool culture, stool WBC, fecal fat quantity to rule out malabsorption Patient had parenthesis on 05/10/2025 evening 1.2 L fluid removed. Sent sample to the lab. # Nasal wound # Sunburn # Wound on the right upper extremity - use sulfasalazine on wound twice daily # Acute on chronic hypoxic respiratory failure # COPD, no exacerbation # Lung fibrosis # Left lower lobe nodule measuring 1.4 cm, possible metastasis - duo nebs q.8 hours - oxygen as needed Hypervolemic hypotonic hyponatremia likely from cirrhosis - iv lasix - start Dilaudid 1 mg q4 hrs, PUD prophylaxis: Protonix Goals of care discussed with the patient for 23 minutes. Full code Plan discussed with Dr. Dyer Plan discussed with: Patient My Orders My Orders Orders - SHANTELL BERGMAN RESIDENT Procedure Category Date Status Time * Registered Nurse Nursery CONS 05/12/25 Transmitted Consult Hydromorphone PHA 05/12/25 In Process Injection (Dilaudid 09:45 Hydrocodone-Acet PHA 05/12/25 In Process 5/325mg Tab ([place] 10:00 Complete Blood Count LAB 05/13/25 Logged 04:00 Comprehensive LAB 05/13/25 Logged Metabolic Panel 04:00 Dietary Evaluation Review Recommendations by RD: Protein Supplementation Comments: 1) Initiate Ensure Enlive qd 2) Encourage optimal PO intake 3) Advance to regular diet when medically feasible, pending ST approval 4) Follow-up with oncology 6) Continue to monitor I&O, labs, and skin integrity Expected Outcomes/Goals: 1) appetite and labs to improve 2) wounds to improve 3) diet to advance 4) f/u in 3-5 days Date of Service: May 12, 2025 Billing Provider: MELLY PETE MD Common Visit Codes: [id number] INP/OBS CARE(HIGH) SHANTELL BERGMAN RESIDENT May 13, 2025 06:52 MELLY PETE MD May 16, 2025 10:04
--- NOTE | 2025-05-13 06:56 | DVHPNRES ---
Progress Note Date Seen: May 13, 2025 Resident Creating Document: SHANTELL BERGMAN RESIDENT Medical Necessity Reason Pt with a Central, PICC or Fol: No Subjective Review of Systems Pt was seen and examined at bed side, complaining of abd pain, abdominal distention, shortness of breath, Objective vital signs Vital Sign Date Time Temp Pulse Resp B/P (MAP) Pulse Ox O2 Delivery O2 Flow Rate FiO2 05/13/25 06:50 65 20 98 05/13/25 06:40 Nasal Cannula 3.0 05/13/25 06:40 32 05/13/25 05:18 113/83 05/13/25 05:00 97.8 97.8 Total Intake and Output 05/12/25 05/12/25 05/13/25 15:00 23:00 07:00 Intake Total 400 ml 150 ml Balance 400 ml 150 ml medications Current Medications Medications Dose Ordered Sig/[place] Route Start Time Stop Time Status Last Admin Dose Admin Acetaminophen 650 mg Q8HP PRN PO 05/06/25 22:30 Hold Ondansetron HCl 4 mg Q6HPRN PRN IV 05/06/25 22:30 05/07/25 09:00 4 MG Furosemide 20 mg DAILY IV 05/07/25 10:00 05/12/25 09:48 20 MG Spironolactone 25 mg DAILY PO 05/07/25 10:00 05/12/25 09:48 25 MG Ceftriaxone Sodium/Dextrose 50 ml @ 50 mls/hr DAILY@0000 IV 05/08/25 00:00 05/13/25 00:45 50 MLS/HR Pantoprazole Sodium 40 mg DAILY@0600 PO 05/07/25 06:00 05/13/25 05:42 40 MG Ipratropium [place] 0.5 mg Q8HR NEB 05/07/25 06:00 05/13/25 06:40 0.5 MG Silver Sulfadiazine 1 applic BID TOP 05/07/25 22:00 05/12/25 23:06 1 APPLIC Levalbuterol HCl 1.25 mg Q8HR NEB 05/09/25 22:00 05/13/25 06:40 1.25 MG Trazodone HCl 50 mg HS PRN PO 05/10/25 18:15 Hydromorphone HCl 1 mg Q4HPRN PRN IV 05/12/25 09:45 05/13/25 04:48 1 MG Acetaminophen/ Hydrocodone Bitart 1 tab Q4HPRN PRN PO 05/12/25 10:00 Examination General: afebrile, palor, mucosae are moist Cardiovascular: Regular S1 and S2. No murmurs, gallops or rubs. No JVD elevation. Bilateral pitting edema Respiratory: Normal B/L air entry on room air. Clear lung sounds on auscultation Abdomen: Mildly hard, tender, distended with hepatosplenomegaly, normoactive bowel sounds, no rebound tenderness Genitourinary: Deferred MSK/skin: Mobilizes 4 limbs. Skin is dry and warm Neurological: No motor, no sensitive deficits, normal speech. Pupils are isocoric and reactive. Psych/Mental Status: A/Ox3. laboratory and microbiology Laboratory Tests 05/12/25 06:34 Test 05/12/25 06:34 Range/Units Serum Glucose 80 74-106 mg/dL Microbiology Date/Time Source Procedure Growth Status 05/11/25 00:00 Ascities Fluid Gram Stain - Final Resulted 05/11/25 00:00 Ascities Fluid Body Fluid Culture - Preliminary Resulted 05/07/25 11:30 Nose Gram Stain - Final Complete 05/07/25 11:30 Nose Wound Culture - Final Complete 05/06/25 23:05 Blood Blood Culture - Final NO GROWTH AFTER 5 DAYS OF INCUBATION. Complete Problem List/Assessment/Plan Problem List/Assessment/Plan # Sepsis likely due to skin wounds vs SBP - IV ceftriaxone, D/C vancomycin as per culture result. 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 - Trace ascites. - CT abdomen pelvis shows hepatic cirrhosis and sequelae of portal hypertension, splenomegaly, heterogeneous hyperechoic regions in the right hepatic dome passive early post treatment related change, small volume ascites - started on IV ceftriaxone 2 g - repeat abdominal ultrasound ordered today - I/R consult for possible Parenthesis - Lasix and spironolactone -ordered stool culture, stool WBC, fecal fat quantity to rule out malabsorption Patient had parenthesis on 05/10/2025 evening 1.2 L fluid removed. # Nasal wound # Sunburn # Wound on the right upper extremity - use sulfasalazine on wound twice daily # Acute on chronic hypoxic respiratory failure # COPD, no exacerbation # Lung fibrosis # Left lower lobe nodule measuring 1.4 cm, possible metastasis - duo nebs q.8 hours - oxygen as needed Hypervolemic hypotonic hyponatremia likely from cirrhosis - iv lasix - start Dilaudid 1 mg q4 hrs, PUD prophylaxis: Protonix Goals of care discussed with the patient for 29 minutes. Full code Plan discussed with Dr. Dyer Plan discussed with: Patient My Orders My Orders Orders - SHANTELL BERGMAN RESIDENT Procedure Category Date Status Time * Finish Repair Worker CONS 05/12/25 Transmitted Consult Hydromorphone PHA 05/12/25 In Process Injection (Dilaudid 09:45 Hydrocodone-Acet PHA 05/12/25 In Process 5/325mg Tab ([place] 10:00 Complete Blood Count LAB 05/13/25 Logged 04:00 Comprehensive LAB 05/13/25 Logged Metabolic Panel 04:00 Dietary Evaluation Review Recommendations by RD: Protein Supplementation Comments: 1) Initiate Ensure Enlive qd 2) Encourage optimal PO intake 3) Advance to regular diet when medically feasible, pending ST approval 4) Follow-up with oncology 6) Continue to monitor I&O, labs, and skin integrity Expected Outcomes/Goals: 1) appetite and labs to improve 2) wounds to improve 3) diet to advance 4) f/u in 3-5 days Date of Service: May 13, 2025 Billing Provider: MELLY PETE MD Common Visit Codes: [id number] INP/OBS CARE(HIGH) SHANTELL BERGMAN RESIDENT May 13, 2025 06:56 MELLY PETE MD May 16, 2025 10:11
[2025-05-13 07:04] LABS: Hematocrit 37.5 % (41.0-53.0); Hemoglobin 12.6 g/dL (13.5-17.5); Mean Corpuscular Hemoglobin 30.1 pg (28.0-32.0); Mean Corpuscular Hgb Conc. 33.6 g/dL (32.0-36.0); Mean Corpuscular Volume 89.6 fL (80.0-100.0); Platelet Count (auto) 350 10^3/uL (140-450); Red Blood Cells 4.19 10^6/uL (4.5-5.90); Red Cell Distribution Width 20.3 % (11.8-14.3); White Blood Cell 14.6 10^3/uL (4.4-10.8)
[2025-05-13 07:20] LABS: Basophils % (manual) 0 (0.0-2.0); Blast Cells 0; Eosinophils % (manual) 0 (0-7); Metamyelocytes % 0; Myelocytes % 0; Promyelocytes % 0; Reactive Lymphocytes 0
[2025-05-13 08:10] LABS: Band Neutrophils % (manual) 2; Lymphocytes % (manual) 27 (10.0-50.0); Monocytes % (manual) 3 (0-12)
[2025-05-13 08:11] LABS: Platelet Estimate Adequate
[2025-05-13 08:49] LABS: Chloride 86 mmol/L (98-107); Sodium 122 mmol/L (136-145)
[2025-05-13 08:51] LABS: Alkaline Phosphatase 284 U/L (46-116); Anion Gap 16 (5-15); Bilirubin, Total 2.5 mg/dL (0.2-1.0); Calcium 9.3 mg/dL (8.7-10.4); Carbon Dioxide 20 mmol/L (20-31); Glucose 60 mg/dL (74-106); Potassium 6.3 mmol/L (3.5-5.1); Total Protein 7.6 g/dL (5.7-8.2)
[2025-05-13 09:04] LABS: Aspartate Aminotransferase 977 U/L (<34)
[2025-05-13] MEDS: ALBUTEROL SULF 2.5 MG/0.5ML(0.5%) NEB SOLN NEB ONE (09:23)
[2025-05-13] MEDS: ALBUTEROL SULF 2.5 MG/0.5ML(0.5%) NEB SOLN ONE (09:23)
[2025-05-13] MEDS: DEXTROSE (50%) 50ML SYRG IV ONE (09:35)
[2025-05-13] MEDS: InsuLIN REG 1unit/0.01ml Soln (100units/ml) IV ONE (09:41)
[2025-05-13] MEDS: CALCIUM GLUC 1,000mg/50ml-NS 50 ML IV ONE (09:44)
[2025-05-13] MEDS: SODIUM ZIRCONIUM CYCL 10 GM PAK PO ONE (09:47)
[2025-05-13] MEDS: SODIUM BICARB 8.4% 50Meq/50ml SYR INJ IV ONE (09:50)
[2025-05-13] MEDS: FUROSEMIDE 20 MG/2 ML VIAL IV ONE (10:01)
--- NOTE | 2025-05-13 11:35 | DVHINCON2 ---
Date of service: May 13, [address] Mcgregor Reason for Consultation Acute kidney injury History of Present Illness Patient is a 59-year-old male with past medical history significant for liver cirrhosis, liver cancer with metastasis is admitted earlier for increasing abdominal distention. Hospital course with noted for increasing BUN creatinine and developement of hyperkalemia. Nephrology is consulted for acute kidney injury Past Medical History PAST MEDICAL HISTORY: Liver cirrhosis, hepatocellular carcinoma with metastasis , COPD Past Surgical History Left arm surgery, bilateral wrist surgery, right knee surgery, left ankle surgery Allergies: Coded Allergies: NO KNOWN ALLERGIES (Unverified , 05/06/25) Current Medications Current Medications Medications (Trade) Dose Ordered Sig/Ruba Route PRN Reason Start Time Stop Time Status Last Admin Octreotide Acetate (SandoSTATIN) 100 mcg TID SUBCUT 05/13/25 14:00 Midodrine (Proamatine Tablet) 10 mg TID@0600,1200,1800 PO 05/13/25 12:00 Dopamine HCl/ Dextrose 250 ml @ 5.258 mls/ hr Q24H IV 05/13/25 11:45 Family History: Patient reports no known family medical history. Review of Systems All 12 item review of systems reviewed with the patient nonsignificant except what is mentioned in the history of present illness H&P Exam Vital Signs/I&O Vital Sign Date Time Temp Pulse Resp B/P (MAP) Pulse Ox O2 Delivery O2 Flow Rate FiO2 05/13/25 10:01 110/66 05/13/25 09:44 68 20 100 05/13/25 09:23 Room Air 0.0 05/13/25 09:23 21 05/13/25 08:25 97.5 97.5 Intake and Output 05/12/25 05/13/25 19:00 07:00 Intake Total 400 ml 150 ml Balance 400 ml 150 ml Intake Oral 400 ml 150 ml # Voids 2 1 Physical Exam Patient was awake alert Lungs clear to auscultation Cardiac exam regular rate and rhythm GI distended bowel sounds are present normal Extremity no clubbing cyanosis or edema Neuro nonfocal Labs/Diagnostic Data Labs/Diagnostic Data Laboratory Tests Test 05/13/25 11:33 05/13/25 09:40 05/13/25 08:04 05/13/25 05:46 Range/Units POC Glucose 101 58 L 70-106 mg/dl Sodium Level 122 L 136-145 mmol/L Potassium Level 6.3 *H 3.5-5.1 mmol/L Chloride Level 86 L 98-107 mmol/L Carbon Dioxide Level 20 20-31 mmol/L Anion Gap 16 H 5-15 Creatinine 2.17 H 0.700-1.30 mg/dL Glomerular Filtration Rate Calc 34 >90 mL/min Serum Glucose 60 L 74-106 mg/dL Calcium Level 9.3 8.7-10.4 mg/dL Total Bilirubin 2.5 H 0.2-1.0 mg/dL Aspartate Amino Transferase (AST) 977 H <34 U/L Alkaline Phosphatase 284 H 46-116 U/L Total Protein 7.6 5.7-8.2 g/dL White Blood Count 14.6 H 4.4-10.8 10^3/uL Red Blood Count 4.19 L 4.5-5.90 10^6/uL Hemoglobin 12.6 L 13.5-17.5 g/dL Hematocrit 37.5 L 41.0-53.0 % Mean Corpuscular Volume 89.6 80.0-100.0 fL Mean Corpuscular Hemoglobin 30.1 28.0-32.0 pg Mean Corpuscular Hemoglobin Concent 33.6 32.0-36.0 g/dL Red Cell Distribution Width 20.3 H 11.8-14.3 % Platelet Count 350 140-450 10^3/uL Mean Platelet Volume 8.1 6.9-10.8 fL Neutrophils (%) (Auto) 37.0-80.0 % Lymphocytes (%) (Auto) 10.0-50.0 % Monocytes (%) (Auto) 0.0-12.0 % Basophils (%) (Auto) 0.0-2.0 % Neutrophils # (Auto) 1.6-8.6 10 ^3/uL Lymphocytes # (Auto) 0.4-5.4 10 ^3/uL Monocytes # (Auto) 0-1.3 10 ^3/uL Differential Total Cells Counted 100.0 100 Neutrophils % (Manual) 68 37.0-80.0 Band Neutrophils % (Manual) 2 Lymphocytes % (Manual) 27 10.0-50.0 Monocytes % (Manual) 3 0-12 Eosinophils % (Manual) 0 0-7 Basophils % (Manual) 0 0.0-2.0 Metamyelocytes % (manual) 0 Myelocytes % (Manual) 0 Promyelocytes % (Manual) 0 Blast Cells % (Manual) 0 Reactive Lymphocytes 0 Platelet Estimate Adequate Clumped Platelets Few Test 05/12/25 06:34 05/11/25 09:24 05/11/25 00:00 05/10/25 04:57 Range/Units White Blood Count 16.7 #H 10.1 9.8 4.4-10.8 10^3/uL Red Blood Count 4.47 L 4.05 L 3.52 L 4.5-5.90 10^6/uL Hemoglobin 13.4 L 12.2 #L 10.6 L 13.5-17.5 g/dL Hematocrit 39.5 #L 35.6 #L 30.6 L 41.0-53.0 % Mean Corpuscular Volume 88.2 88.0 86.9 80.0-100.0 fL Mean Corpuscular Hemoglobin 29.8 30.2 30.0 28.0-32.0 pg Mean Corpuscular Hemoglobin Concent 33.9 34.3 34.5 32.0-36.0 g/dL Red Cell Distribution Width 20.0 H 20.0 H 19.8 H 11.8-14.3 % Platelet Count 453 H 463 #H 289 140-450 10^3/uL Mean Platelet Volume 8.5 8.1 8.3 6.9-10.8 fL Neutrophils (%) (Auto) 37.0-80.0 % Lymphocytes (%) (Auto) 10.0-50.0 % Monocytes (%) (Auto) 0.0-12.0 % Basophils (%) (Auto) 0.0-2.0 % Neutrophils # (Auto) 1.6-8.6 10 ^3/uL Lymphocytes # (Auto) 0.4-5.4 10 ^3/uL Monocytes # (Auto) 0-1.3 10 ^3/uL Differential Total Cells Counted 100.0 100.0 100.0 100 Neutrophils % (Manual) 67 81 H 80 37.0-80.0 Band Neutrophils % (Manual) 14 3 1 Lymphocytes % (Manual) 16 11 11 10.0-50.0 Monocytes % (Manual) 2 2 6 0-12 Eosinophils % (Manual) 1 1 0 0-7 Basophils % (Manual) 0 0 0 0.0-2.0 Metamyelocytes % (manual) 0 0 0 Myelocytes % (Manual) 0 2 2 Promyelocytes % (Manual) 0 0 0 Blast Cells % (Manual) 0 0 0 Reactive Lymphocytes 0 0 0 Platelet Estimate Increased Increased Adequate Sodium Level 120 L 123 L 123 L 136-145 mmol/L Potassium Level 5.7 *H 4.7 4.2 3.5-5.1 mmol/L Chloride Level 86 L 89 L 91 L 98-107 mmol/L Carbon Dioxide Level 23 24 23 20-31 mmol/L Anion Gap 11 10 9 5-15 Blood Urea Nitrogen 35 #H 24 #H 12 9-23 mg/dL Creatinine 1.28 0.84 0.55 L 0.700-1.30 mg/dL Glomerular Filtration Rate Calc 64 100 114 >90 mL/min BUN/Creatinine Ratio 27.3 H 28.6 H 21.8 H 10.0-20.0 Serum Glucose 80 150 H 78 74-106 mg/dL Calcium Level 9.6 9.2 8.3 L 8.7-10.4 mg/dL Total Bilirubin 2.4 H 1.9 H 1.3 H 0.2-1.0 mg/dL Aspartate Amino Transferase (AST) 629 H 287 H 257 H <34 U/L Alanine Aminotransferase (ALT) 400 H 157 H 174 H 7-40 U/L Alkaline Phosphatase 246 H 231 H 241 H 46-116 U/L Total Protein 7.5 7.5 6.8 5.7-8.2 g/dL Albumin 3.0 L 3.1 L 2.9 L 3.2-4.8 g/dL Body Fluid Source Peritoneal fluid Body Fluid WBC (Manual) 51446 H 0-200 CUMM Body Fluid RBC (Manual) 2462 H 0-2000 CUMM Body Fluid Mononuclear Cells 5 % Body Fluid Polymorphonuclear Cells 95 H 0-25 % Body Fluid Total Protein 2.7 . g/dL Body Fluid Albumin 1.1 Not Estab. g/dL Large Platelets Few Anisocytosis (manual) Slight Target Cells Moderate Test 05/09/25 14:34 05/09/25 09:40 05/09/25 06:21 05/08/25 09:55 Range/Units Stool for White Cells None seen Vancomycin Level Trough 7.5 5-10 ug/mL White Blood Count 8.7 4.4-10.8 10^3/uL Red Blood Count 3.39 L 4.5-5.90 10^6/uL Hemoglobin 10.3 L 13.5-17.5 g/dL Hematocrit 29.6 L 41.0-53.0 % Mean Corpuscular Volume 87.3 80.0-100.0 fL Mean Corpuscular Hemoglobin 30.2 28.0-32.0 pg Mean Corpuscular Hemoglobin Concent 34.6 32.0-36.0 g/dL Red Cell Distribution Width 19.5 H 11.8-14.3 % Platelet Count 286 140-450 10^3/uL Mean Platelet Volume 8.0 6.9-10.8 fL Neutrophils (%) (Auto) 78.2 37.0-80.0 % Lymphocytes (%) (Auto) 9.5 L 10.0-50.0 % Monocytes (%) (Auto) 10.9 0.0-12.0 % Eosinophils (%) (Auto) 0.9 0.0-7.0 % Basophils (%) (Auto) 0.5 0.0-2.0 % Neutrophils # (Auto) 6.8 1.6-8.6 10 ^3/uL Lymphocytes # (Auto) 0.8 0.4-5.4 10 ^3/uL Monocytes # (Auto) 1.0 0-1.3 10 ^3/uL Eosinophils # (Auto) 0.1 0-0.8 10 ^3/uL Basophils # (Auto) 0 0-0.2 10 ^3/uL Nucleated Red Blood Cells 0.0 % Sodium Level 124 L 136-145 mmol/L Potassium Level 4.2 3.5-5.1 mmol/L Chloride Level 91 L 98-107 mmol/L Carbon Dioxide Level 24 20-31 mmol/L Anion Gap 9 5-15 Blood Urea Nitrogen 12 9-23 mg/dL Creatinine 0.57 L 0.700-1.30 mg/dL Glomerular Filtration Rate Calc 113 >90 mL/min BUN/Creatinine Ratio 21.1 H 10.0-20.0 Serum Glucose 101 74-106 mg/dL Calcium Level 9.0 8.7-10.4 mg/dL Magnesium Level 1.5 L 1.6-2.6 mg/dL Iron Level 41 L 65-175 ug/dL Total Iron Binding Capacity 214 L 250-425 ug/dL Percent Iron Saturation 19.2 L 20-55 % Total Bilirubin 1.4 H 0.2-1.0 mg/dL Aspartate Amino Transferase (AST) 247 H <34 U/L Alanine Aminotransferase (ALT) 164 H 7-40 U/L Alkaline Phosphatase 209 H 46-116 U/L Total Protein 6.7 5.7-8.2 g/dL Albumin 2.8 L 3.2-4.8 g/dL Ammonia < 10 L 11-32 umol/L Tumor Marker Alpha Fetoprotein Afp H 0.0-8.4 ng/mL CA 19-9 Antigen 93 H 0-35 U/mL CA 125 Antigen 426.0 Not Estab. U/mL Test 05/08/25 03:30 05/07/25 20:40 05/07/25 10:26 05/07/25 04:50 Range/Units White Blood Count 10.5 4.4-10.8 10^3/uL Red Blood Count 3.62 L 4.5-5.90 10^6/uL Hemoglobin 10.7 L 13.5-17.5 g/dL Hematocrit 31.7 L 41.0-53.0 % Mean Corpuscular Volume 87.5 80.0-100.0 fL Mean Corpuscular Hemoglobin 29.6 28.0-32.0 pg Mean Corpuscular Hemoglobin Concent 33.8 32.0-36.0 g/dL Red Cell Distribution Width 19.5 H 11.8-14.3 % Platelet Count 317 140-450 10^3/uL Mean Platelet Volume 8.3 6.9-10.8 fL Neutrophils (%) (Auto) 37.0-80.0 % Lymphocytes (%) (Auto) 10.0-50.0 % Monocytes (%) (Auto) 0.0-12.0 % Basophils (%) (Auto) 0.0-2.0 % Neutrophils # (Auto) 1.6-8.6 10 ^3/uL Lymphocytes # (Auto) 0.4-5.4 10 ^3/uL Monocytes # (Auto) 0-1.3 10 ^3/uL Differential Total Cells Counted 100.0 100 Neutrophils % (Manual) 76 37.0-80.0 Band Neutrophils % (Manual) 0 Lymphocytes % (Manual) 17 10.0-50.0 Monocytes % (Manual) 4 0-12 Eosinophils % (Manual) 3 0-7 Basophils % (Manual) 0 0.0-2.0 Metamyelocytes % (manual) 0 Myelocytes % (Manual) 0 Promyelocytes % (Manual) 0 Blast Cells % (Manual) 0 Reactive Lymphocytes 0 Platelet Estimate Adequate Creatinine 0.69 L 0.700-1.30 mg/dL Glomerular Filtration Rate Calc 107 >90 mL/min Magnesium Level 1.7 1.6-2.6 mg/dL Carcinoembryonic Antigen 1.71 <=5.0 ng/mL Vitamin B12 Level 802 211-911 pg/mL Vitamin D 25-Hydroxy 48.1 30.0-100 ng/mL Thyroid Stimulating Hormone (TSH) 2.53 0.55-4.78 uIU/mL Random Vancomycin Level < 3.0 L 5-10 ug/mL Stool Occult Blood Negative Negative Stool Occult Blood Sample #3 Negative Serum Osmolality 269 L 278-298 mOsm/kg Plasma/Serum Blood Alcohol < 3.0 <10 mg/dL Urine Osmolality 142 mOsm/kg Urine Sodium 33 L 40-220 mmol/L Urine Opiates Screen Neg NEGATIVE Urine Fentanyl Screen Neg NEGATIVE Urine Barbiturates Screen Neg NEGATIVE Urine Phencyclidine Screen Neg NEGATIVE Urine Amphetamines Screen Neg NEGATIVE Urine Benzodiazepines Screen Neg NEGATIVE Urine Cocaine Screen Neg NEGATIVE Urine Cannabinoids Screen Neg NEGATIVE Test 05/06/25 23:05 05/06/25 12:00 05/06/25 11:54 Range/Units White Blood Count 12.8 H 10.8 4.4-10.8 10^3/uL Red Blood Count 4.01 L 4.03 L 4.5-5.90 10^6/uL Hemoglobin 11.9 L 11.8 L 13.5-17.5 g/dL Hematocrit 35.2 L 35.8 L 41.0-53.0 % Mean Corpuscular Volume 87.8 88.7 80.0-100.0 fL Mean Corpuscular Hemoglobin 29.6 29.3 28.0-32.0 pg Mean Corpuscular Hemoglobin Concent 33.8 33.0 32.0-36.0 g/dL Red Cell Distribution Width 19.8 H 20.3 H 11.8-14.3 % Platelet Count 384 344 140-450 10^3/uL Mean Platelet Volume 8.4 8.7 6.9-10.8 fL Neutrophils (%) (Auto) 70.6 37.0-80.0 % Lymphocytes (%) (Auto) 22.0 10.0-50.0 % Monocytes (%) (Auto) 6.1 0.0-12.0 % Eosinophils (%) (Auto) 0.7 0.0-7.0 % Basophils (%) (Auto) 0.6 0.0-2.0 % Neutrophils # (Auto) 9.0 H 1.6-8.6 10 ^3/uL Lymphocytes # (Auto) 2.8 0.4-5.4 10 ^3/uL Monocytes # (Auto) 0.8 0-1.3 10 ^3/uL Eosinophils # (Auto) 0.1 0-0.8 10 ^3/uL Basophils # (Auto) 0.1 0-0.2 10 ^3/uL Nucleated Red Blood Cells 0.0 % Sodium Level 126 #L 131 L 136-145 mmol/L Potassium Level 4.7 4.6 3.5-5.1 mmol/L Chloride Level 94 L 97 L 98-107 mmol/L Carbon Dioxide Level 25 27 20-31 mmol/L Anion Gap 7 7 5-15 Blood Urea Nitrogen 14 13 9-23 mg/dL Creatinine 0.96 0.70 0.700-1.30 mg/dL Glomerular Filtration Rate Calc 91 106 >90 mL/min BUN/Creatinine Ratio 14.6 18.6 10.0-20.0 Serum Glucose 98 85 74-106 mg/dL Lactic Acid Level 1.4 0.4-2.0 mmol/L Calcium Level 9.4 9.6 8.7-10.4 mg/dL Total Bilirubin 1.7 H 1.7 H 0.2-1.0 mg/dL Aspartate Amino Transferase (AST) 330 H 324 H <34 U/L Alanine Aminotransferase (ALT) 216 H 204 H 7-40 U/L Alkaline Phosphatase 279 H 288 H 46-116 U/L Total Protein 7.9 7.8 5.7-8.2 g/dL Albumin 3.4 3.4 3.2-4.8 g/dL Hepatitis A IgM Antibody Negative Hepatitis B Surface Antigen Negative Negative Hepatitis B Core IgM Antibody Negative Negative Hepatitis C Antibody Positive *A Negative Urine Color Dark-yellow Yellow Urine Clarity Clear Clear Urine pH 6.0 5.0-9.0 Urine Specific [place] 1.027 1.001-1.035 Urine Protein 1+ H Negative Urine Ketones Negative Negative Urine Blood Negative Negative /uL Urine Nitrite Negative Negative Urine Bilirubin 1+ Negative Urine Urobilinogen 12 H Negative mg/dL Urine Leukocyte Esterase Negative Negative /uL Urine RBC 1 0 - 3 /hpf Urine Microscopic WBC 3 0-3 /HPF Urine Squamous Epithelial Cells None seen <5 /hpf Urine Bacteria None seen None Seen /hpf Urine Glucose Normal Normal mg/dL Differential Total Cells Counted 100.0 100 Neutrophils % (Manual) 67 37.0-80.0 Band Neutrophils % (Manual) 6 Lymphocytes % (Manual) 21 10.0-50.0 Monocytes % (Manual) 5 0-12 Eosinophils % (Manual) 1 0-7 Basophils % (Manual) 0 0.0-2.0 Metamyelocytes % (manual) 0 Myelocytes % (Manual) 0 Promyelocytes % (Manual) 0 Blast Cells % (Manual) 0 Reactive Lymphocytes 0 Platelet Estimate Adequate Anisocytosis (manual) Moderate Prothrombin Time 12.9 H 9.3-11.8 sec Prothrombin Time INR 1.24 H 0.9-1.15 Activated Partial Thromboplast Time 36.9 H 24.5-34.5 SEC Lipase 89 H 12-53 U/L Microbiology Date/Time Source Procedure Growth Status 05/07/25 11:30 Nose Gram Stain - Final Complete 05/07/25 11:30 Nose Wound Culture - Final Complete 05/06/25 23:05 Blood Blood Culture - Final NO GROWTH AFTER 5 DAYS OF INCUBATION. Complete Assessment Acute kidney injury secondary to hepatorenal syndrome Hyperkalemia Decompensated liver cirrhosis History of hepatocellular carcinoma with metastasis Hypoalbuminemia Recommendations Closely monitor fluid and electrolytes Avoid nephrotoxic medications Strict I&O's Check urinalysis urine electrolytes and protein excretion Emergent medical treatment for hyperkalemia Discontinue spironolactone Low-dose dopamine Midodrine 10 mg p.o. t.i.d. Octreotide 100 mcg subcu q.8 hours Renal diet We will continue to follow Patient seen and examined by myself. Time spent 40 minutes. I discussed my plan of care with the primary team, the patient and the primary nurse at the bedside I would like to thank Dr. Mcgregor for the consult, will follow up Plan discussed with: Patient MIGUEL LONGORIA MD May 13, 2025 11:34
[2025-05-13 12:23] LABS: Urine Bacteria FEW /hpf (None Seen); Urine Blood 1+ /uL (Negative); Urine Clarity Turbid (Clear); Urine Color Yellow (Yellow); Urine Mucus FEW (None Seen); Urine Protein, UAD TRACE (Negative); Urine Specific Gravity 1.012 (1.001-1.035); Urine Squamous Epithelial Cell FEW /hpf (<5); Urine Urobilinogen Normal (Negative); Urine WBC 3 /HPF (0-3)
[2025-05-13 12:26] LABS: Phosphorus 11.8 mg/dL (2.4-5.1)
[2025-05-13 12:41] LABS: Protein, Urine 104.3 mg/dL (1-14)
[2025-05-13 12:43] LABS: Creatinine, Urine 61.71 mg/dL (30.0-125.0); Urine Protein/Creatinine Ratio 1.69
[2025-05-13 13:08] LABS: BUN/Creatinine Ratio 24.4 (10.0-20.0); Magnesium 2.4 mg/dL (1.6-2.6)
[2025-05-13 13:09] LABS: Alanine Aminotransferase 847 U/L (7-40); Albumin 3.1 g/dL (3.2-4.8); Blood Urea Nitrogen 53 mg/dL (9-23)
[2025-05-13 13:24] LABS: Hepatitis B Surface Antigen Negative (Negative)
[2025-05-13 13:59] LABS: Hepatitis C Antibody Positive (Negative)
[2025-05-13] MEDS: OCTREOTIDE ACETATE 100 MCG/ML VL SUBCUT SCH (14:00)
[2025-05-13 15:07] LABS: Fecal Fats Neutral Normal (.); Fecal Fats Total Normal (.)
[2025-05-13] MEDS: DOPamine 1600MCG/ML D5W 250 ML IV SCH (16:08)
[2025-05-13] MEDS: MIDODRINE HCL 10 MG TAB PO SCH (16:08)
[2025-05-14 01:00] VITALS: BP_SYST 129; BP_SYST 99; BP_DIAS 57; BP_DIAS 89; PULSE 64; RESP 18; RESP 19; TEMP 97.8; O2SAT 95; O2SAT 98
[2025-05-14 05:00] VITALS: BP 117/51; PULSE 61; RESP 18; TEMP 97.4; O2SAT 90
[2025-05-14 06:22] VITALS: PULSE 68; RESP 16; O2SAT 92
[2025-05-14 06:28] VITALS: PULSE 59; RESP 16; O2SAT 100
[2025-05-14] MEDS: MELATONIN 5 MG TAB PO ONE (07:05)
--- NOTE | 2025-05-14 08:49 | DVHDSRES ---
Discharge Summary Date of Admission Resident Creating Document: SHANTELL BERGMAN RESIDENT May 06, 2025 at 22:29 Date of Discharge: May 14, 2025 Admitting Diagnosis Abdominal pain. Labs/Diagnostic Data: Laboratory Results Test 05/13/25 11:52 05/13/25 11:33 05/13/25 08:04 05/13/25 05:46 Urine Color Yellow (Yellow) Urine Clarity Turbid (Clear) Urine pH 5.0 (5.0-9.0) Urine Specific [place] 1.012 (1.001-1.035) Urine Protein Trace (Negative) Urine Ketones Negative (Negative) Urine Blood 1+ /uL (Negative) Urine Nitrite Negative (Negative) Urine Bilirubin Negative (Negative) Urine Urobilinogen Normal mg/dL (Negative) Urine Leukocyte Esterase Negative /uL (Negative) Urine RBC 1 /hpf (0 - 3) Urine Microscopic WBC 3 /HPF (0-3) Urine Squamous Epithelial Cells Few /hpf (<5) Urine Bacteria Few /hpf (None Seen) Urine Mucus Few (None Seen) Urine Osmolality 297 mOsm/kg Urine Creatinine 61.71 mg/dL (30.0-125.0) Urine Protein/Creatinine Ratio 1.69 Urine Sodium 47 mmol/L (40-220) Urine Glucose Normal mg/dL (Normal) Urine Total Protein 104.3 mg/dL (1-14) POC Glucose 101 mg/dl (70-106) Sodium Level 122 mmol/L (136-145) Potassium Level 6.3 mmol/L (3.5-5.1) Chloride Level 86 mmol/L (98-107) Carbon Dioxide Level 20 mmol/L (20-31) Anion Gap 16 (5-15) Blood Urea Nitrogen 53 mg/dL (9-23) Creatinine 2.17 mg/dL (0.700-1.30) Glomerular Filtration Rate Calc 34 mL/min (>90) BUN/Creatinine Ratio 24.4 (10.0-20.0) Serum Glucose 60 mg/dL (74-106) Calcium Level 9.3 mg/dL (8.7-10.4) Phosphorus Level 11.8 mg/dL (2.4-5.1) Magnesium Level 2.4 mg/dL (1.6-2.6) Total Bilirubin 2.5 mg/dL (0.2-1.0) Aspartate Amino Transferase (AST) 977 U/L (<34) Alanine Aminotransferase (ALT) 847 U/L (7-40) Alkaline Phosphatase 284 U/L (46-116) Total Protein 7.6 g/dL (5.7-8.2) Albumin 3.1 g/dL (3.2-4.8) White Blood Count 14.6 10^3/uL (4.4-10.8) Red Blood Count 4.19 10^6/uL (4.5-5.90) Hemoglobin 12.6 g/dL (13.5-17.5) Hematocrit 37.5 % (41.0-53.0) Mean Corpuscular Volume 89.6 fL (80.0-100.0) Mean Corpuscular Hemoglobin 30.1 pg (28.0-32.0) Mean Corpuscular Hemoglobin Concent 33.6 g/dL (32.0-36.0) Red Cell Distribution Width 20.3 % (11.8-14.3) Platelet Count 350 10^3/uL (140-450) Mean Platelet Volume 8.1 fL (6.9-10.8) Neutrophils (%) (Auto) % (37.0-80.0) Lymphocytes (%) (Auto) % (10.0-50.0) Monocytes (%) (Auto) % (0.0-12.0) Basophils (%) (Auto) % (0.0-2.0) Neutrophils # (Auto) 10 ^3/uL (1.6-8.6) Lymphocytes # (Auto) 10 ^3/uL (0.4-5.4) Monocytes # (Auto) 10 ^3/uL (0-1.3) Differential Total Cells Counted 100.0 (100) Neutrophils % (Manual) 68 (37.0-80.0) Band Neutrophils % (Manual) 2 Lymphocytes % (Manual) 27 (10.0-50.0) Monocytes % (Manual) 3 (0-12) Eosinophils % (Manual) 0 (0-7) Basophils % (Manual) 0 (0.0-2.0) Metamyelocytes % (manual) 0 Myelocytes % (Manual) 0 Promyelocytes % (Manual) 0 Blast Cells % (Manual) 0 Reactive Lymphocytes 0 Platelet Estimate Adequate Clumped Platelets Few Vitamin D 25-Hydroxy 34.9 ng/mL (30.0-100) Parathyroid Hormone (Intact) 39.5 pg/mL (18.4-80.1) Hepatitis B Surface Antigen Negative (Negative) Hepatitis C Antibody Positive (Negative) Test 05/11/25 00:00 05/10/25 04:57 05/09/25 14:34 05/09/25 09:40 Body Fluid Source Peritoneal fluid Body Fluid WBC (Manual) 95452 CUMM (0-200) Body Fluid RBC (Manual) 2462 CUMM (0-2000) Body Fluid Mononuclear Cells 5 % Body Fluid Polymorphonuclear Cells 95 % (0-25) Body Fluid Total Protein 2.7 g/dL (.) Body Fluid Albumin 1.1 g/dL (Not Estab.) Large Platelets Few Anisocytosis (manual) Slight Target Cells Moderate Stool Neutral Fats Normal (.) Stool Total Fats Normal (.) Stool for White Cells None seen Vancomycin Level Trough 7.5 ug/mL (5-10) Test 05/09/25 06:21 05/08/25 09:55 05/08/25 03:30 05/07/25 20:40 Eosinophils (%) (Auto) 0.9 % (0.0-7.0) Eosinophils # (Auto) 0.1 10 ^3/uL (0-0.8) Basophils # (Auto) 0 10 ^3/uL (0-0.2) Nucleated Red Blood Cells 0.0 % Iron Level 41 ug/dL (65-175) Total Iron Binding Capacity 214 ug/dL (250-425) Percent Iron Saturation 19.2 % (20-55) Ammonia < 10 umol/L (11-32) Tumor Marker Alpha Fetoprotein Afp ng/mL (0.0-8.4) CA 19-9 Antigen 93 U/mL (0-35) CA 125 Antigen 426.0 U/mL (Not Estab.) Carcinoembryonic Antigen 1.71 ng/mL (<=5.0) Vitamin B12 Level 802 pg/mL (211-911) Thyroid Stimulating Hormone (TSH) 2.53 uIU/mL (0.55-4.78) Random Vancomycin Level < 3.0 ug/mL (5-10) Stool Occult Blood Negative (Negative) Stool Occult Blood Sample #3 (Negative) Test 05/07/25 10:26 05/07/25 04:50 05/06/25 23:05 05/06/25 11:54 Serum Osmolality 269 mOsm/kg (278-298) Plasma/Serum Blood Alcohol < 3.0 mg/dL (<10) Urine Opiates Screen Neg (NEGATIVE) Urine Fentanyl Screen Neg (NEGATIVE) Urine Barbiturates Screen Neg (NEGATIVE) Urine Phencyclidine Screen Neg (NEGATIVE) Urine Amphetamines Screen Neg (NEGATIVE) Urine Benzodiazepines Screen Neg (NEGATIVE) Urine Cocaine Screen Neg (NEGATIVE) Urine Cannabinoids Screen Neg (NEGATIVE) Lactic Acid Level 1.4 mmol/L (0.4-2.0) Hepatitis A IgM Antibody Negative Hepatitis B Core IgM Antibody Negative (Negative) Prothrombin Time 12.9 sec (9.3-11.8) Prothrombin Time INR 1.24 (0.9-1.15) Activated Partial Thromboplast Time 36.9 SEC (24.5-34.5) Lipase 89 U/L (12-53) Other Laboratory Tests 05/13/25 08:04 05/13/25 05:46 Brief Hx & Hospital Course: 59-year-old male with a past medical history of COPD, liver cancer diagnosed about 8 months ago presented to the ED with a chief complaint of abdominal pain and distention. Patient reports that he is homeless and was living in [place] but was not happy with the treatment the and came to [place] forgetting further treatment. Patient reports of being a heavy drinker previously but quit about 6 years ago, last year had abdominal distention following which he was diagnosed with liver cancer following a biopsy done 8 months ago. Reports that he was offered treatment chemotherapy/radiotherapy but he does not want to get any of those. He reports that since the last 4-5 days , noticed abdominal distention and worsening abdominal pain. Reports of having loose stools 1-2 episodes every day and has nausea, no blood in the stools, no blood in the vomitus. Patient also noticed that about 3 days ago he had a sunburn on his nose following which the skin started peeling of the small part of the skin was attached which he peeled of himself and it was bleeding and started oozing clear to yellowish liquid. He also had a small bump on his right arm which also started oozing. Patient reports of a bump on his head near the vertex which is a small rough scaly crusted about 1 X 0.5 cm in size with irregular borders course and dry and scaly. Patient left AMA before seeing the patient in the morning. 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 Patient was counseled about treatment plan, medications, possible side effects, patientverbalized understanding. All questions were answered to the best of my ability. This discharge took greater then 30 minutes in planning, reviewing documentation, counseling the patient, and discussing with other team members." ASSESSMENT ASSESSMENT Assessment Date of Service: May 14, 2025 Billing Provider: RC DEL ROSARIO MD Common Visit Codes: 74480-HDJ/OBS DISCH DAY >30min SHANTELL BERGMAN RESIDENT May 14, 2025 08:49 RC DEL ROSARIO MD May 16, 2025 11:40
== END 2025-05-14 07:46 | disposition left against medical advice (07) | DRG 720 ==
LOC: ER 10:40 → OVERFLOW 22:29 → WEST WING 05-07 10:52 → TELE-WESTW 05-12 23:58 → WEST WING 05-12 23:59
PROVIDERS: ADMIT Student in an Organized Health Care Education/Training Program; ATTEND Student in an Organized Health Care Education/Training Program
PROC: 0W9G3ZZ Drainage of Peritoneal Cavity, Percutaneous Approach (ICD-10-PCS; principal; 2025-05-10)
DX: A41.9 Sepsis, unspecified organism (principal); J96.21 Acute and chronic respiratory failure with hypoxia; K76.7 Hepatorenal syndrome; K85.90 Acute pancreatitis without necrosis or infection, unspecified; K65.2 Spontaneous bacterial peritonitis; C78.02 Secondary malignant neoplasm of left lung; D68.9 Coagulation defect, unspecified; E88.09 Other disorders of plasma-protein metabolism, not elsewhere classified; K70.31 Alcoholic cirrhosis of liver with ascites; E87.1 Hypo-osmolality and hyponatremia; J84.10 Pulmonary fibrosis, unspecified; K76.6 Portal hypertension; R16.2 Hepatomegaly with splenomegaly, not elsewhere classified; J44.9 Chronic obstructive pulmonary disease, unspecified; F17.210 Nicotine dependence, cigarettes, uncomplicated; F15.10 Other stimulant abuse, uncomplicated; K59.00 Constipation, unspecified; L55.9 Sunburn, unspecified; E86.1 Hypovolemia; K76.9 Liver disease, unspecified; B19.20 Unspecified viral hepatitis C without hepatic coma; E87.5 Hyperkalemia; N17.9 Acute kidney failure, unspecified; Z59.00 Homelessness unspecified; Z85.05 Personal history of malignant neoplasm of liver; Z53.29 Procedure and treatment not carried out because of patient's decision for other reasons
CPT/HCPCS: 36415; 49082; 71045; 74176; 76705; 80053; 80074; 80202; 80307; 80320; 81001; 82105; 82140; 82270; 82306; 82378; 82565; 82570; 82607; 82705; 82962; 83540; 83550; 83605; 83690; 83735; 83930; 83935; 83970; 84100; 84156; 84300; 84443; 85007; 85025; 85027; 85048; 85610; 85730; 86301; 86304; 86803; 87040; 87081; 87205; 87340; 89051; 94640; 96365; 96375; G0378; J1815; J1885; J2405; J2470

== ENCOUNTER 2025-05-14 08:32 | Inpatient (IN) | payer MEDICAID ==
[2025-05-14] VITALS (19 sets, daily range): BP systolic 87–129; BP diastolic 10–55; PULSE 58–76; RESP 18–32; TEMP 72.5–96.1; O2SAT 91–100
[~2025-05-14] VITALS: Ht 167.6 cm; Wt 66.0 kg
--- NOTE | 2025-05-14 09:11 | ED.PDOC ---
GI ASSESSMENT HPI Comments This is a 59 year old male presenting to the ED with chief complaint of abdominal pain. Patient reports that he was admitted to the hospital on 05/06 for abdominal pain due to metastatic liver cancer, however, due to being upset with staff earlier today, he signed out AMA an hour prior to coming back to the ED. Patient relays that he is continuing to experience abdominal pain, requesting pain medication. Patient denies any further symptoms at this time. Chief Complaint: Abdominal Pain Time Seen by MD: 09:05 Reviewed Notes: Nurses Notes, Medications, Allergies Allergies: Coded Allergies: NO KNOWN ALLERGIES (Unverified , 05/06/25) Information Source: Patient Mode of Arrival: Wheelchair Timing: Days Duration: Since onset Prehospital treatment: None Quality: Sharp Vomitus: None Stool: Normal Severity: Moderate Recent: None Recent Hx of: Liver Disease Pain Location: Diffuse Modifying Factors: Nothing Associated sign and symptoms: Abdominal Pain Past Medical History PAST MEDICAL HISTORY: Cancer, COPD, Liver Surgical History (Other): Bilateral wrist surgery, right knee surgery, left arm surgery Family History Family History: Reviewed,noncontributory to illness, Family hx of Cancer Social History Smoker: Cigarettes Alcohol: Sober Drugs: Methamphetamine Lives In: Homeless Constitutional: denies: chills, diaphoresis, fatigue, fever, malaise, sweats, weakness, others EENTM: denies: blurred vision, double vision, ear bleeding, ear discharge, ear drainage, ear pain, ear ringing, eye pain, eye redness, hearing loss, mouth pain, mouth swelling, nasal discharge, nose bleeding, nose congestion, nose pain, photophobia, tearing, throat pain, throat swelling, voice changes, others Respiratory: denies: cough, hemoptysis, orthopnea, SOB at rest, shortness of breath, SOB with excertion, stridor, wheezing, others Cardiovascular: denies: chest pain, dizzy spells, diaphoresis, Dyspnea on exertion, edema, irregular heart beat, left arm pain, lightheadedness, palpitations, PND, syncope, others Gastrointestinal: reports: abdominal pain; denies: abdomen distended, blood streaked bowels, constipated, diarrhea, dysphagia, difficulty swallowing, hematemesis, melena, nausea, poor appetite, poor fluid intake, rectal bleeding, rectal pain, vomiting, others Genitourinary: denies: burning, dysuria, flank pain, frequency, hematuria, incontinence, penile discharge, penile sore, pain, testicle pain, testicle s welling, urgency, others Neurological: denies: dizziness, fainting, headache, left sided numbness, left sided weakness, numbness, paresthesia, pre-existing deficit, right sided numbness, right sided weakness, seizure, speech problems, tingling, tremors, weakness, others Musculoskeletal: denies: back pain, gout, joint pain, joint swelling, muscle pain, muscle stiffness, neck pain, others Integumetry: denies: bruises, change in color, change in hair/nails, dryness, laceration, lesions, lumps, rash, wounds, others Allergic/Immunocompromised: denies: Difficulty Healing, Frequent Infections, Hives, Itching, others Hematologic/Lymphatic: denies: anemia, blood clots, easy bleeding, easy bruising, swollen glands, others Endocrine: denies: excessive hunger, excessive sweating, excessive thirst, excessive urination, flushing, intolerance to cold, intolerance to heat, unexplained weight gain, unexplained weight loss, others Psychiatric: denies: anxiety, bipolar disorder, depression, hopeless, panic disorder, schizophrenia, sleepless, suicidal, others All Other Systems: Reviewed and Negative Physical Exam General Appearance: No Apparent Distress, Normal HEENT: Normal ENT Inspection, Pharynx Normal, TMs Normal Neck: Full Range of Motion, Non-Tender, Normal, Normal Inspection Respiratory: Chest Non-Tender, Lungs Clear, No Accessory Muscle Use, No Respiratory Distress, Normal Breath Sounds Cardiovascular: No Edema, No JVD, No Murmur, No Gallop, Normal Peripheral Pulses, Tachycardia Breast Exam: Deferred Gastrointestinal: Distended, No Organomegaly, Non Tender, No Pulsatile Mass, Normal Bowel Sounds Genitalia: Deferred Pelvic: Deferred Rectal: Deferred Extremities: No calf tenderness, Normal capillary refill, Normal inspection, Normal range of motion, Non-tender, No pedal edema Musculoskeletal : Apperance: Normal Neurologic: Alert, deputy harbormaster II-XII nml as Tested, No Motor Deficits, Normal Affect, Normal Mood, No Sensory Deficits Cerebellar Function: Normal Reflexes: Normal Skin: Dry, Normal Color, Warm Lymphatic: No Adenopathy Was a procedure done? Was a procedure done?: No GI differential Dx Differential Diagnosis: Bowel Obstruction, Cholangitis, Cholecystitis, C onstipation, Diverticular disease, Esophageal rupture, Esophagitis, Gastritis/PUD, Gastroenteritis, Hernia, Hepatitis, Inflammatory BD, Ischemic Bowel, Impaction, Stress Ulcer X-Ray, Labs, Meds, VS Vital Signs Date Time Temp Pulse Resp B/P (MAP) Pulse Ox O2 Delivery O2 Flow Rate FiO2 05/14/25 10:03 106/56 05/14/25 09:05 96.1 66 26 92/84 (87) 92 96.1 Current Medications Medications (Trade) Dose Ordered Sig/Ruba Route Start Time Stop Time Status Last Admin Fentanyl Citrate 25 mcg ONCE ONCE IV 05/14/25 09:00 05/14/25 09:01 DC 05/14/25 10:03 Time of 1ST Reevaluation: 10:05 Reevaluation 1ST: Unchanged Patient Education/Counseling: Diagnosis, Treatment, Prognosis, Need For Follow Up Family Education/Counseling: No Family Present Comments pt has known ascites, possibly sbp, metastatic cancer.. he eloeped from [facility], since he was not getting pain control. he agrees to be readmitted. i will consult hospitalist to readmit him Additional Information Previous visits reviewed: 05/06/25 for intractable abdominal pain The following tests were ordered, and results were reviewed by me: None Additional Information was gathered from interviewing the following independent historians: None I reviewed and agreed with the following test results read by other providers: None I discussed treatment and results with medical personnel and: patient Comprehensive systems review obtained and negative except for what is stated in the HPI. SEPSIS Sepsis Screen SEPSIS EXCLUSION NOTE: Sepsis Exclusion Note: Patient presents with SIRS criteria, but the SIRS response is attributed to [recent antibiotic use, malignant ascites, hypovolemia due to 3rd spacing ], not a suspected infection. Sepsis bundle is not initiated at this time, due to this reason. Further management will focus on the treatment of the above condition (s).Sepsis Exclusion Note: Patient presents with SIRS criteria, but the SIRS response is attributed to [ ], not a suspected infection. Sepsis bundle is not initiated at this time, due to this reason. Further management will focus on the treatment of the above condition (s).Sepsis Exclusion Note: Patient presents with SIRS criteria, but the SIRS response is attributed to [ malignancy, hypovolemia from ascites], not a suspected infection. Sepsis bundle is not initiated at this time, due to this reason. Further management will focus on the treatment of the above condition (s). Physician Orders Dopamine 1600mcg/Ml D5w (05/14/25 09:30) Vital Signs Date Time Temp Pulse Resp B/P (MAP) Pulse Ox O2 Delivery O2 Flow Rate FiO2 05/14/25 10:03 106/56 05/14/25 09:05 96.1 66 26 92/84 (87) 92 96.1 Medications Medications Dose Ordered Sig/Ruba Route Start Time Stop Time Status Last Admin Dose Admin Fentanyl Citrate 25 mcg ONCE ONCE IV 05/14/25 09:00 05/14/25 09:01 DC 05/14/25 10:03 Departure 1 Departure Time of Disposition: 10:10 Impression: Primary Impression: Abdominal pain Qualified Codes: R10.84 - Generalized abdominal pain Additional Impressions: Ascites Qualified Codes: R18.0 - Malignant ascites Hypotension Qualified Codes: E86.1 - Hypovolemia Hepatitis C Qualified Codes: B18.2 - Chronic viral hepatitis C Metastatic cancer Qualified Codes: C79.9 - Secondary malignant neoplasm of unspecified site Intractable pain Disposition: ADMITTED INPATIENT Condition: Serious Critical Care Note Critical Care Time?: No Stability Stability form required: No Heart Score Heart Score: Heart Score Response (Comments) Value History N/A 0 EKG N/A 0 Age N/A 0 Risk Factors N/A 0 Troponin N/A 0 Total 0 I personally scribed for MATHEW APONTE MD ([email or web address]) on 05/14/25 at 09:11. Electronically submitted by Ector Ravi ([email or web address]). MATHEW APONTE MD May 14, 2025 09:11
[2025-05-14] MEDS: DOPamine 1600MCG/ML D5W 250 ML IV ONE (09:30)
[2025-05-14] MEDS: fentaNYL CITRATE 100 MCG/2 ML VL IV ONE (10:03)
[2025-05-14] MEDS: cefTRIAXone 1GM/50ML D5W 50 ML IV ONE (10:06)
[2025-05-14] MEDS ORDERED: NITROGLYCERIN 0.4 MG SL TAB SL PRN (10:30)
[2025-05-14] MEDS ORDERED: VANCOMYCIN PER PHARMACY 0 MG IV SCH (10:30)
[2025-05-14] MEDS ORDERED: MORPHINE SULFATE INJ 2 MG/ml SYRG IV PRN (10:30)
[2025-05-14] MEDS ORDERED: cefTRIAXone 2GM/50ML D5W 50 ML IV SCH (10:30)
--- NOTE | 2025-05-14 10:50 | DVH ---
XY CHEST XRAY 1 VIEW, HISTORY: baseline COMPARISON: XY CHEST PORTABLE on DOS: 05/11/25, XY CHEST XRAY 1 VIEW on DOS: 05/06/25 XY CHEST PORTABLE on DOS: 05/11/25, XY CHEST XRAY 1 VIEW on DOS: 05/06/25 TECHNICAL DATA: 1 view of the chest was obtained. FINDINGS: Lines and tubes: None Cardiomediastinal silhouette: normal Pulmonary vasculature: normal Lung expansion: normal Lung airspace: normal Lung interstitium: Prominent Pleura: normal Pneumothorax: no Bones: Unremarkable Other: no IMPRESSION: Prominent perihilar interstitial opacities could be pulmonary edema or pneumonia.
[2025-05-14] MEDS ORDERED: ALBUTEROL SULF 2.5 MG/0.5ML(0.5%) NEB SOLN NEB PRN (11:00)
[2025-05-14] MEDS ORDERED: IPRATROPIUM BROM 0.5 MG/2.5ML INH SOL NEB PRN (11:00)
[2025-05-14 11:16] LABS: Hematocrit 38.8 % (41.0-53.0); Hemoglobin 12.8 g/dL (13.5-17.5); Mean Corpuscular Hemoglobin 29.5 pg (28.0-32.0); Mean Corpuscular Volume 89.4 fL (80.0-100.0); Platelet Count (auto) 330 10^3/uL (140-450); Red Blood Cells 4.34 10^6/uL (4.5-5.90); Red Cell Distribution Width 20.1 % (11.8-14.3); White Blood Cell 12.8 10^3/uL (4.4-10.8)
[2025-05-14 11:20] LABS: Basophils % (manual) 0 (0.0-2.0); Blast Cells 0; Eosinophils % (manual) 0 (0-7); Metamyelocytes % 0; Myelocytes % 0; Promyelocytes % 0; Reactive Lymphocytes 0
[2025-05-14] MEDS: PANTOPRAZOLE 40 MG TAB PO SCH (11:20)
--- NOTE | 2025-05-14 11:25 | DVHHP2 ---
History of Present Illness Reason for Visit: Abdominal pain History of Present Illness Trenton Pierre is a 59-year-old male with past medical history of COPD, liver cirrhosis, lung fibrosis, left lower lobe nodule, hepatocellular cancer with Mets refusing chemo and radiation, left arm surgery, right knee surgery, left ankle surgery, and bilateral wrist surgery who presents back to the ED with abdominal pain. Patient was reportedly here earlier today in room 278 and signed out AMA. Patient's friend at the bedside and requesting information on advanced directives. He reports that patient has a brother in [place]. Patient endorses that he is homeless. Recent reports shows that patient had a paracentesis on the 10 of May was 1.2 L out and samples were sent out with results noted. Patient also has noted on bridge of nose possibly sunburn. Patient denies any chest pain, fever, chills, lightheadedness, weakness, dizziness, shortness of breath, nausea, vomiting, diarrhea, recent sick contacts, recent trauma or injury, recent ingestion of spoiled food, or recent travels. Pulmonary: COPD Hepatobiliary: Cirrhosis Past Medical History Lung fibrosis Left lower lobe nodule Hepatocellular carcinoma with Mets refusing chemo and radiation Past Surgical History: Other (Left arm surgery, bilateral wrist surgery, right knee surgery, and left ankle surgery) Smoke: <1 pack per day ALCOHOL: none (Quit) Drugs: Other (Methamphetamine) Lives: Homeless Domestic Violence: Neg Review of Systems Gastrointestinal: Abdominal Pain Allergies: Coded Allergies: NO KNOWN ALLERGIES (Unverified , 05/06/25) Exam Vital Signs Vital Signs Date Time Temp Pulse Resp B/P (MAP) Pulse Ox O2 Delivery O2 Flow Rate FiO2 05/14/25 10:03 106/56 05/14/25 09:05 96.1 66 26 92 96.1 General Appearance: Alert, Oriented X3, Cooperative, No acute distress HEENT: Atraumatic, PERRLA, EOMI Respiratory: Normal air movement Cardiovascular: Normal S1, Normal S2 Abdominal: Other (distended) Extremities: Normal pulses Neuro: Normal gait, Normal speech, Normal tone, Sensation intact Psych/Mental Status: Mental status NL, Mood NL Labs/Xrays XY CHEST XRAY 1 VIEW, HISTORY: baseline COMPARISON: XY CHEST PORTABLE on DOS: 05/11/25, XY CHEST XRAY 1 VIEW on DOS: 05/06/25 XY CHEST PORTABLE on DOS: 05/11/25, XY CHEST XRAY 1 VIEW on DOS: 05/06/25 TECHNICAL DATA: 1 view of the chest was obtained. FINDINGS: Lines and tubes: None Cardiomediastinal silhouette: normal Pulmonary vasculature: normal Lung expansion: normal Lung airspace: normal Lung interstitium: Prominent Pleura: normal Pneumothorax: no Bones: Unremarkable Other: no IMPRESSION: Prominent perihilar interstitial opacities could be pulmonary edema or pneumonia. Assessment/Plan Assessment/Plan Assessment Intractable abdominal pain likely due to SBP versus hepatocellular carcinoma with mets refusing chemo and radiation Leukocytosis likely due to pneumonia versus SBP Transaminitis rule out acute pancreatitis Hyponatremia Hyperkalemia ERMA Hyperbilirubinemia History of left lower lobe nodule History of lung fibrosis History of liver cirrhosis History of hep C positive History of hepatosplenomegaly History of nasal bridge wound versus sunburn History of bilateral wrist surgery History of left arm surgery History of right knee surgery History of left ankle surgery Recent paracentesis on with -1.2 L fluid removed Plan Admit to tele [facility] plus Lasix Hyperkalemia protocol Protonix Duo nebs Dilaudid 1 mg IV IV antibiotics-ceftriaxone + vancomycin Dopamine ordered in ED Fentanyl ordered in ED CBC CMP Chest x-ray Influenza test Silver sulfadiazine Antiemetics Pain management NPO due to transaminitis CT abdomen and pelvis ordered DVT prophylaxis-not indicated patient ambulating PUD prophylaxis-PPIs Discussed plan of care with patient and nurse Patient requesting hospice/palliative care IR consult for paracentesis GI consult Rounding hospitalist consider Nephro consult donor services team leader consult for advanced directive and patient homelessness Plan discussed with: Patient My Orders Orders - 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
[2025-05-14 11:36] LABS: Anion Gap 24 (5-15); BUN/Creatinine Ratio 26.9 (10.0-20.0); Total Protein 6.7 g/dL (5.7-8.2)
[2025-05-14 11:45] LABS: Band Neutrophils % (manual) 13; Lymphocytes % (manual) 38 (10.0-50.0); Monocytes % (manual) 4 (0-12)
[2025-05-14 11:46] LABS: Anisocytosis Slight; Platelet Estimate Adequate
[2025-05-14 11:47] LABS: Alkaline Phosphatase 420 U/L (46-116); Aspartate Aminotransferase 1881 U/L (<34); Blood Urea Nitrogen 75 mg/dL (9-23); Carbon Dioxide 12 mmol/L (20-31); Chloride 86 mmol/L (98-107); Glucose 66 mg/dL (74-106); Sodium 122 mmol/L (136-145)
[2025-05-14 11:48] LABS: Alanine Aminotransferase 2064 U/L (7-40); Albumin 2.6 g/dL (3.2-4.8); Bilirubin, Total 4.1 mg/dL (0.2-1.0); Calcium 6.8 mg/dL (8.7-10.4); Potassium 7.1 mmol/L (3.5-5.1)
[2025-05-14] MEDS: CALCIUM GLUC 1,000mg/50ml-NS 50 ML IV ONE ×2 (12:01→19:26)
[2025-05-14] MEDS: DEXTROSE (50%) 50ML SYRG IV ONE ×4 (12:08→19:54)
[2025-05-14] MEDS: ALBUTEROL SULF 2.5 MG/0.5ML(0.5%) NEB SOLN NEB ONE ×2 (12:14→18:51)
[2025-05-14] MEDS: SODIUM BICARB 8.4% 50Meq/50ml SYR INJ IV ONE ×2 (12:19→19:15)
[2025-05-14] MEDS: SODIUM ZIRCONIUM CYCL 10 GM PAK PO ONE (12:30)
[2025-05-14] MEDS: FUROSEMIDE 20 MG/2 ML VIAL IV ONE ×2 (12:30→19:13)
[2025-05-14] MEDS: VANCOMYCIN 1GM/200ML PM 200 ML IV ONE (12:54)
[2025-05-14] MEDS: ONDANSETRON HCL 4 MG/2 ML VIAL IV PRN (13:11)
[2025-05-14] MEDS: HYDROmorphone HCL 2 MG/ML VL/or syr IV PRN (13:12)
--- NOTE | 2025-05-14 16:13 | DVH ---
Exam: CT CT AB PEL WO CON-NO ORAL OR IV History: r/o pancreatitis Comparison Study: CT CT AB PEL WO CON-NO ORAL OR IV on DOS: 05/06/25 TECHNIQUE: Multidetector CT of the abdomen was performed from lung bases to pubic symphysis. Imaging was performed without IV contrast. Axial, coronal and sagittal multiplanar reformats were obtained fr om the axial data set by the technologist. Radiation Dose Information: CT Dose: CTDI volume is 10.62 mGy. Dose-length product is 535.77 mGy*cm FINDINGS: Evaluation of solid organs is limited due to lack of intravenous contrast use. Findings: Lung Bases: Pulmonary fibrosis with end-stage lung disease. Base worrisome for pulmonary metastasis Normal heart size. No pleural or pericardial effusion. Liver: Heterogeneous liver with multiple intrahepatic masses Gallbladder and Biliary Tree: Unremarkable Spleen: Unremarkable Pancreas: The pancreas is grossly normal in appearance. Adrenal Glands: Unremarkable Kidneys: Kidneys are grossly normal without calculi or hydronephrosis. Bladder: Grossly unremarkable for degree of distention. Bowel: The stomach is grossly normal in appearance. Small bowel and colon are normal in caliber and d istribution. The appendix is not visualized; however, no secondary findings of acute appendicitis id entified. Ascites: Ascites, punctate bubbles of air throughout the ascites consistent with a perforated viscus. Lymphadenopathy: No mesenteric, retroperitoneal or periportal lymphadenopathy. Abdominal Wall and Mesentery: Unremarkable. Vasculature: The visualized abdominal aorta is normal in size and caliber. Evaluation of abdominal a nd pelvic vessels is limited due to lack of intravenous contrast. Pelvic Organs: Unremarkable Musculoskeletal: No aggressive focal bony lesions, acute fractures or dislocation. Soft tissues: Unremarkable IMPRESSION: 1. Chronic end-stage lung disease. 2. Multiple intrahepatic masses with ascites. 3. Multiple bubbles of free air scattered throughout the ascites consistent with perforated viscus 4. Mesenteric caking on the long suggesting metastatic disease. 5. 13-17 mm nodule lower left lung field posterior costophrenic angle was described on prior study. Radiation optimization: All CT scans at this facility use at least one of these dose optimization jose hniques: automated exposure control mA and/or kV adjustment per patient size (includes targeted exam s where dose is matched to clinical indication) or iterative reconstruction. CRITICAL FINDINGS Critical Result: ASCITES WITH FREE AIR SUGGESTING PERFORATED VISCUS MULTIPLE INTRAHEPATIC MASSES SUGGESTING METASTATIC DISEASE CAKING OF THE MESENTERY ON THE LEFT SUGGESTING METASTATIC DISEASE. Findings discussed with EDIL Spencer at 05/14/2025 03:54 PM, and acknowledged receipt and understa nding of the findings. HS:Y
--- NOTE | 2025-05-14 16:51 | DVHINCON2 ---
Date of service: May 14, 2025 Family History: Patient reports no known family medical history. Allergies: Coded Allergies: NO KNOWN ALLERGIES (Unverified , 05/06/25) Current Medications Current Medications Medications (Trade) Dose Ordered Sig/Ruba Route PRN Reason Start Time Stop Time Status Last Admin Ondansetron HCl (Zofran) 4 mg Q4HP PRN IV NAUSEA / VOMITING 05/14/25 10:30 05/14/25 13:11 Nitroglycerin (Ntrostat Sublingual) 0.4 mg Q5MINP PRN SL FOR CHEST PAIN 05/14/25 10:30 Morphine Sulfate 2 mg Q30M PRN IV FOR CHEST PAIN 05/14/25 10:30 Vancomycin HCl 0 ml @ 0 mls/hr UD IV 05/14/25 10:30 05/14/25 16:27 DC Ceftriaxone Sodium/Dextrose 50 ml @ 50 mls/hr DAILY IV 05/14/25 10:30 05/14/25 10:57 DC Hydromorphone HCl (Dilaudid Injection) 1 mg Q4HPRN PRN IV SEVERE PAIN (7-10 PAIN SCALE) 05/14/25 10:30 05/14/25 13:12 Albuterol (Ventolin Medneb) 2.5 mg Q4HPRN PRN NEB SHORTNESS OF BREATH 05/14/25 11:00 Ipratropium [place] (Atrovent Medneb) 0.5 mg Q4HPRN PRN NEB SHORTNESS OF BREATH 05/14/25 11:00 Silver Sulfadiazine (Silvadene) 1 applic BID TOP 05/14/25 22:00 Furosemide (Lasix Injection) 40 mg BIDD IV 05/14/25 18:00 Spironolactone (Aldactone) 25 mg DAILY PO 05/15/25 10:00 Pantoprazole Sodium (Protonix Tablet) 40 mg DAILY@0600 PO 05/14/25 11:00 05/14/25 11:20 Ceftriaxone Sodium/Dextrose 50 ml @ 50 mls/hr DAILY IV 05/15/25 10:00 05/14/25 16:27 DC Piperacillin Sod/ Tazobactam Sod 100 ml @ 25 mls/hr Q8HR IV 05/14/25 22:00 Micafungin Sodium 100 mg/Sodium Chloride 100 ml @ 100 mls/hr DAILY IV 05/14/25 16:30 Vital Signs Vital Signs Date Time Temp Pulse Resp B/P (MAP) Pulse Ox O2 Delivery O2 Flow Rate FiO2 05/14/25 16:14 96.1 76 24 102/55 91 3.0 32 96.1 05/14/25 15:13 Nasal Cannula* Labs/Diagnostic Data Labs Test 05/14/25 16:00 05/14/25 12:17 05/14/25 11:04 Range/Units Potassium Level 6.8 *H 3.5-5.1 mmol/L Troponin I High Sensitivity 3 L </=54 ng/L White Blood Count 12.8 H 4.4-10.8 10^3/uL Red Blood Count 4.34 L 4.5-5.90 10^6/uL Hemoglobin 12.8 L 13.5-17.5 g/dL Hematocrit 38.8 L 41.0-53.0 % Mean Corpuscular Volume 89.4 80.0-100.0 fL Mean Corpuscular Hemoglobin 29.5 28.0-32.0 pg Mean Corpuscular Hemoglobin Concent 33.0 32.0-36.0 g/dL Red Cell Distribution Width 20.1 H 11.8-14.3 % Platelet Count 330 140-450 10^3/uL Mean Platelet Volume 8.6 6.9-10.8 fL Neutrophils (%) (Auto) 37.0-80.0 % Lymphocytes (%) (Auto) 10.0-50.0 % Monocytes (%) (Auto) 0.0-12.0 % Basophils (%) (Auto) 0.0-2.0 % Neutrophils # (Auto) 1.6-8.6 10 ^3/uL Lymphocytes # (Auto) 0.4-5.4 10 ^3/uL Monocytes # (Auto) 0-1.3 10 ^3/uL Differential Total Cells Counted 100.0 100 Neutrophils % (Manual) 45 37.0-80.0 Band Neutrophils % (Manual) 13 Lymphocytes % (Manual) 38 10.0-50.0 Monocytes % (Manual) 4 0-12 Eosinophils % (Manual) 0 0-7 Basophils % (Manual) 0 0.0-2.0 Metamyelocytes % (manual) 0 Myelocytes % (Manual) 0 Promyelocytes % (Manual) 0 Blast Cells % (Manual) 0 Reactive Lymphocytes 0 Platelet Estimate Adequate Anisocytosis (manual) Slight Sodium Level 122 L 136-145 mmol/L Chloride Level 86 L 98-107 mmol/L Carbon Dioxide Level 12 L 20-31 mmol/L Anion Gap 24 H 5-15 Blood Urea Nitrogen 75 #H 9-23 mg/dL Creatinine 2.79 H 0.700-1.30 mg/dL Glomerular Filtration Rate Calc 25 >90 mL/min BUN/Creatinine Ratio 26.9 H 10.0-20.0 Serum Glucose 66 L 74-106 mg/dL Calcium Level 6.8 L 8.7-10.4 mg/dL Total Bilirubin 4.1 H 0.2-1.0 mg/dL Aspartate Amino Transferase (AST) 1881 H <34 U/L Alanine Aminotransferase (ALT) 2064 H 7-40 U/L Alkaline Phosphatase 420 H 46-116 U/L Total Protein 6.7 5.7-8.2 g/dL Albumin 2.6 L 3.2-4.8 g/dL Assessment [id number] C/O ABD PAIN DISTENTION AFEBRILE VSS JAUNDICE CIRRHOSIS OF LIVER METS TO LUNGS ANF LIVER SOURCE NOT KNOWN REFUSED CHEMOTHERAPY RECENT PARACENTESIS CT SCAN R/O BOWEL PERFORATION BASED ON POCKETS OF FREE AIR SOURCE NOT KNOWN RECENT PARACENTESIS MIGHT BE RELATED TO POCKETS OF INTRAABD AIR PT PTT , LACTATE LEVELS PENDING NPO NG IV ABX CONSIDER EMERGENT PARACENTESIS BY IR GASTROGRAFIN STUDY TO R/O BOWEL PERFORATION AND DETERMINE THE NEED FOR EMERGENT SURGERY NURSE AT BEDSIDE Plan discussed with: Patient, Other CHANDANA ZABALA MD May 14, 2025 16:51
[2025-05-14] MEDS ORDERED: InsuLIN REG 1unit/0.01ml Soln (100units/ml) IV ONE (17:15)
[2025-05-14] MEDS ORDERED: D5W 5% 1,000 ML IV SCH ×2 (17:15→18:15)
[2025-05-14] MEDS: MICAFUNGIN SODIUM 100 MG in SODIUM CHL 0.9% 100 ML IV SCH (17:45)
[2025-05-14 18:10] LABS: INR 2.06 (0.9-1.15); Partial Thromboplastin Time 48.4 SEC (24.5-34.5); Prothrombin Time 20.3 sec (9.3-11.8)
[2025-05-14 18:29] LABS: Lactic Acid w/Reflex 9.4 mmol/L (0.4-2.0)
[2025-05-14] MEDS: D5W 5% 1,000 ML IV SCH ×2 (18:30→20:15)
[2025-05-14] MEDS: FUROSEMIDE 40 MG/4 ML VIAL IV SCH (19:13)
--- NOTE | 2025-05-14 19:21 | DVHINCON2 ---
DATE OF CONSULTATION: 05/14/2025 HISTORY OF PRESENT ILLNESS: This is a 59-year-old coming with a past history of COPD, liver cirrhosis, lung fibrosis in the left lower lobe, and metastatic disease according to the CAT scan with hepatocellular cancer with metastatic disease. He has refused chemoradiation and has a left arm surgery done, right knee surgery done, left ankle surgery done, and bilateral wrist surgery done. He comes back to the Emergency Room with abdominal pain. Recently, he was seen in the ER, and from what he is telling me, a paracentesis was done, but then he signed out AMA. Currently, he has some nausea and vomiting. No bowel activity today. No fever or chills. No hematuria or melena. No bleeding per rectum. PAST MEDICAL HISTORY: Lung fibrosis, metastatic disease in the liver, cirrhosis of the liver. No diabetes, hypertension and he has refused chemoradiation. We do not know the source of his cancer. PAST SURGICAL HISTORY: As mentioned above, left arm surgery, bilateral wrist surgery, right knee surgery, and left ankle surgery. PHYSICAL EXAMINATION: VITAL SIGNS: Currently, he is afebrile with stable signs. HEENT: There is no evidence of pallor. He looks mildly pale, but no cyanosis. He is jaundiced. NECK: Supple and nontender with no thyromegaly. No lymphadenopathy. CHEST AND LUNGS: Clear. HEART: Within normal limits. ABDOMEN: Soft, distended, and minimally tender. No rebound. EXTREMITIES: Not assessed at this point. Please refer to records. CT scan suggesting the possibility of viscus perforation, but because of the recent paracentesis, the air in the abdomen can also be due to the paracentesis done recently. So, at this point, the source of bowel perforation is not clear on the CAT scan and needs to be ruled out for him to be considered for emergent surgery. PLAN: The plan will be to keep him n.p.o. NG tube to low continuous suction, get PT/PTT, and continue with hydration. He is very high risk for surgery because of his cirrhosis. The plan will be to ensure that he needs emergency surgery based upon ongoing evaluation. The plan is to consider either a repeat CT scan of the abdomen and pelvis with p.o. contrast or a Gastrografin study to determine the need for surgery. MD ANIVAL Sebastian/ROLAND TID: [id number] RECEIPT: [id number] cc: SHERIDAN Finley
[2025-05-14] MEDS: SODIUM BICARB 8.4% 50Meq/50ml SYR Vial IV ONE ×4 (19:26→20:17)
[2025-05-14] MEDS: InsuLIN REG 1unit/0.01ml Soln (100units/ml) IV ONE (20:00)
[2025-05-14] MEDS: NOREPINEPHRINE 8 MG/250ML KIT 250 ML IV ONE (20:08)
[2025-05-14] MEDS: SODIUM BICARB 50mEq/50ml Vial 100 ML in D5W 5% 1,000 ML IV ONE (20:15)
[2025-05-14] MEDS ORDERED: LACTULOSE 10g/15ml SOLN 473ML PR ONE ×2 (20:15)
[2025-05-14] MEDS: InsuLIN REG 1unit/0.01ml Soln (100units/ml) ONE (20:32)
[2025-05-14] MEDS: SODIUM BICARB 8.4% 50Meq/50ml SYR INJ ONE (20:34)
[2025-05-14] MEDS: NOREPINEPHRINE 8 MG/250ML KIT 250 ML IV SCH (21:00)
[2025-05-14] MEDS: ROCURONIUM 10MG/ML 10ML VIAL IV ONE ×2 (21:15→21:45)
[2025-05-14] MEDS: PROPOFOL 100 ML IV ONE (21:18)
[2025-05-14] MEDS: ETOMIDATE (2MG/ML) 20ML VIAL IV ONE ×2 (21:23→21:45)
[2025-05-14] MEDS ORDERED: MIDAZOLAM DRIP 50 mg/50mL 50 ML IV SCH (21:45)
[2025-05-14] MEDS ORDERED: PIPERACILLIN-TAZOB 3.375GM 100 ML IV SCH (22:00)
[2025-05-14] MEDS ORDERED: SILVER SULFADIAZINE 1 % TOPICAL CREAM 50GM TOP SCH (22:00)
[2025-05-14] MEDS: PROPOFOL 100 ML IV SCH (22:01)
--- NOTE | 2025-05-14 22:10 | DVH ---
CHEST RADIOGRAPH Indication: Post intubation Technique: Single frontal view of the chest was obtained Comparison: XY CHEST XRAY 1 VIEW on DOS: 05/14/25, XY CHEST PORTABLE on DOS: 05/11/25, XY CHEST XRAY 1 VIEW on DOS: 05/06/25 FINDINGS: Lines and Tubes: Endotracheal tube 1.6 cm above the soren recommend withdrawal 1-2 cm. Enteric tube is noted gastroesophageal junction however there is still large amount of air in the stomach. Recomme nd advancement 2-3 inches. Lungs: No focal consolidation. Pleura: No effusion. No pneumothorax. Cardiomediastinal contours: Unremarkable Bones: No acute osseous abnormality. IMPRESSION: 1. Endotracheal tube 1.6 cm above the soren. Recommend withdrawal 1-2 cm. 2. Enteric tube visualized to the gastroesophageal junction however there is still a large amount of gas in the stomach. Recommend advancement 2-3 inches further. HS:Y
--- NOTE | 2025-05-14 22:13 | DVHNC2 ---
Procedure - I was requested by hospitalist Dr. Russo to place central line in this patient admitted under the hospitalist service. Procedure performed: Left Femoral Central venous catheter insertion Consent: Procedure was performed under emergent conditions, patient sedated and intubated. PROCEDURE SUMMARY: A time out was performed. My hands were washed immediately prior to the procedure. I wore a surgical cap, mask with protective eyewear, full gown and sterile gloves throughout the procedure. The patient was placed in Trendelenburg position. The [X] Left [_]Right [_] neck [_] chest [X] groin was prepped using [X] chlorhexidine scrub and draped in sterile fashion using a three quarter sheet drape and sterile towels. Skin preparation was allowed to dry prior to skin puncture. Anatomic landmarks were identified. Using real-time ultrasound, with sterile probe cover and sterile gel, the introducer needle was inserted into the vein under direct ultrasound visualization. Venous blood was withdrawn. The syringe was removed and a guidewire was advanced into the introducer needle. The guidewire was visualized in the appropriate vein by ultrasound. A small incision was made at the skin surface with a scalpel and the introducer ne edle was exchanged for a dilator over the guidewire. After appropriate dilation was obtained, the dilator was exchanged over the wire for a central venous catheter. The wire was removed and the catheter was sutured in. A biopatch was placed at the insertion site. A sterile op-site was placed over the catheter and biopatch. The patient tolerated the procedure without any hemodynamic compromise. At time of procedure completion, all ports aspirated and flushed properly. \ MD LIV Cotton CHAILLE A MD May 14, 2025 22:13
--- NOTE | 2025-05-14 23:28 | DVHPN2 ---
Progress Note Date Seen: May 14, 2025 Medical Necessity Reason Pt with a Central, PICC or Fol: Yes Objective vital signs Vital Sign Date Time Temp Pulse Resp B/P (MAP) Pulse Ox O2 Delivery O2 Flow Rate FiO2 05/14/25 21:35 98/45 05/14/25 18:55 22 92 Nasal Cannula* 2 28 05/14/25 18:00 96.7 68 96.7 medications Current Medications Medications Dose Ordered Sig/Ruba Route Start Time Stop Time Status Last Admin Dose Admin Ondansetron HCl 4 mg Q4HP PRN IV 05/14/25 10:30 05/14/25 13:11 4 MG Nitroglycerin 0.4 mg Q5MINP PRN SL 05/14/25 10:30 Morphine Sulfate 2 mg Q30M PRN IV 05/14/25 10:30 Hydromorphone HCl 1 mg Q4HPRN PRN IV 05/14/25 10:30 05/14/25 13:12 1 MG Albuterol 2.5 mg Q4HPRN PRN NEB 05/14/25 11:00 Ipratropium [place] 0.5 mg Q4HPRN PRN NEB 05/14/25 11:00 Silver Sulfadiazine 1 applic BID TOP 05/14/25 22:00 Furosemide 40 mg BIDD IV 05/14/25 18:00 05/14/25 19:13 40 MG Spironolactone 25 mg DAILY PO 05/15/25 10:00 Pantoprazole Sodium 40 mg DAILY@0600 PO 05/14/25 11:00 05/14/25 11:20 40 MG Piperacillin Sod/ Tazobactam Sod 100 ml @ 25 mls/hr Q8HR IV 05/14/25 22:00 Micafungin Sodium 100 mg/Sodium Chloride 100 ml @ 100 mls/hr DAILY IV 05/14/25 16:30 05/14/25 17:45 100 MLS/HR Lactulose 300 ml Q6HR DE 05/15/25 00:00 Dextrose 1,000 ml @ 75 mls/hr [id number] IV 05/14/25 20:15 05/14/25 20:15 75 MLS/HR Propofol 100 ml @ 1.98 mls/hr Q24H IV 05/14/25 21:45 05/14/25 22:01 1.98 MLS/HR Midazolam HCl 50 ml @ 1 mls/hr Q24H IV 05/14/25 21:45 Norepinephrine Bitartrate 250 ml @ 3.75 mls/hr Q24H IV 05/14/25 20:00 05/14/25 21:00 3.75 MLS/HR laboratory and microbiology Laboratory Tests 05/14/25 20:43 05/14/25 11:04 Test 05/14/25 11:04 Range/Units Serum Glucose 66 L 74-106 mg/dL Problem List/Assessment/Plan Problem List/Assessment/Plan AFEBRILE HYPOTHERMIC HEMODYNAMICALLY LABILE ON VASOPRESSOR SUPPORT INTUBATED AC RENAL FAILURE POTASSIUM ELEVATED LACTATE ELEVATED PT ELEVATED HIGH RISK AND UNSTABLE FOR EMERGENT SURGERY CONTINUE RESUSCITATION , CORRECT COAGULOPATHY NEPHROLOGY EVAL NPO NG TO LCS CONSIDER EMERGENT SURGERY BASED ON RESUSCITATION COAGULOPATHY CORRECTION AND FAMILY CONSENT E LAP POSSIBLE BOWEL RESECTION POSSIBLE COLOSTOMY Plan discussed with: Other My Orders My Orders Orders - CHANDANA ZABALA MD Procedure Category Date Status Time Ng To Lis VIRAJ 05/14/25 In Process 16:39 * Radiologist Consult CONS 05/14/25 Transmitted 16:39 CHANDANA ZABALA MD May 14, 2025 23:28
[2025-05-15] VITALS (19 sets, daily range): BP systolic 92–124; BP diastolic 12–37; PULSE 51–70; RESP 8–30; TEMP 92.7–98.8; O2SAT 59–100
[2025-05-15] MEDS ORDERED: LACTULOSE 10g/15ml SOLN 473ML PR SCH
[2025-05-15] MEDS ORDERED: VANCOMYCIN PER PHARMACY 0 MG IV SCH (00:15)
[2025-05-15] MEDS: SODIUM ZIRCONIUM CYCL 10 GM PAK PO ONE (00:30)
--- NOTE | 2025-05-15 01:01 | DVH ---
CHEST RADIOGRAPH Indication: NGT Placement Confirmation. Technique: Single frontal view of the chest was obtained COMPARISON: XY CHEST XRAY 1 VIEW on DOS: 05/14/25, XY CHEST XRAY 1 VIEW on DOS: 05/14/25, XY CHEST PORT ABLE on DOS: 05/11/25, XY CHEST XRAY 1 VIEW on DOS: 05/06/25 FINDINGS: Lines and Tubes: Interval advancement of enteric catheter with tip now identified within the decompre ssed gastric lumen. Endotracheal tube unchanged. Lungs: Stable appearing moderate diffuse increased prominence of the pulmonary vasculature. No eviden ce of focal consolidation. Pleura: No effusion. No pneumothorax. Cardiomediastinal contours: Unremarkable Bones: Unremarkable IMPRESSION: 1. Stable diffuse increased prominence of the pulmonary vasculature. 2. Interval advancement of enteric catheter. 3. Endotracheal tube.
[2025-05-15] MEDS: ALBUTEROL SULF 2.5 MG/0.5ML(0.5%) NEB SOLN NEB ONE (01:05)
[2025-05-15] MEDS: DEXTROSE (50%) 50ML SYRG IV ONE (01:32)
[2025-05-15] MEDS: SODIUM BICARB 8.4% 50Meq/50ml SYR INJ IV ONE (01:32)
[2025-05-15] MEDS: CALCIUM GLUC 1,000mg/50ml-NS 50 ML IV ONE (01:32)
[2025-05-15] MEDS: InsuLIN REG 1unit/0.01ml Soln (100units/ml) IV ONE (01:37)
[2025-05-15] MEDS ORDERED: SODIUM BICARB 50mEq/50ml Vial 100 ML in D5W 5% 1,000 ML IV ONE (02:15)
[2025-05-15] MEDS: SODIUM CHLORIDE 0.9% 500 ML IV ONE (02:30)
[2025-05-15] MEDS: SODIUM BICARB 8.4% 50Meq/50ml SYR Vial IV ONE (02:31)
[2025-05-15] MEDS ORDERED: phytonadione 10 MG in SODIUM CHL 0.9% 50 ML IV ONE (03:00)
[2025-05-15 03:07] LABS: Hematocrit 33.1 % (41.0-53.0); Hemoglobin 10.5 g/dL (13.5-17.5); Mean Corpuscular Hemoglobin 29.2 pg (28.0-32.0); Mean Corpuscular Hgb Conc. 31.8 g/dL (32.0-36.0); Mean Corpuscular Volume 91.8 fL (80.0-100.0); Platelet Count (auto) 161 10^3/uL (140-450); White Blood Cell 18.9 10^3/uL (4.4-10.8)
[2025-05-15 03:10] LABS: Red Cell Distribution Width 20.3 % (11.8-14.3)
[2025-05-15 03:11] LABS: Basophils % (manual) 0 (0.0-2.0); Blast Cells 0; Eosinophils % (manual) 0 (0-7); Promyelocytes % 0; Reactive Lymphocytes 0
[2025-05-15 03:27] LABS: Anion Gap 26 (5-15); BUN/Creatinine Ratio 25.5 (10.0-20.0)
[2025-05-15] MEDS ORDERED: MORPHINE SULFATE INJ 2 MG/ml SYRG IV PRN (03:30)
[2025-05-15 03:32] LABS: Sodium 128 mmol/L (136-145)
[2025-05-15 03:33] LABS: Alkaline Phosphatase 334 U/L (46-116); Bilirubin, Total 3.4 mg/dL (0.2-1.0); Carbon Dioxide 17 mmol/L (20-31); Chloride 85 mmol/L (98-107); Glucose 137 mg/dL (74-106); Total Protein 5.1 g/dL (5.7-8.2)
[2025-05-15 03:34] LABS: Potassium 7.2 mmol/L (3.5-5.1)
[2025-05-15 03:35] LABS: Blood Urea Nitrogen 84 mg/dL (9-23); Calcium 5.9 mg/dL (8.7-10.4)
[2025-05-15] MEDS: LORazepam 2MG/ML-1ML VIAL IV PRN (03:40)
[2025-05-15 03:44] LABS: Alanine Aminotransferase 1920 U/L (7-40)
[2025-05-15 03:45] LABS: Aspartate Aminotransferase 2131 U/L (<34)
[2025-05-15 04:15] LABS: Anisocytosis Slight; Band Neutrophils % (manual) 21; Lymphocytes % (manual) 9 (10.0-50.0); Macrocytosis Slight; Metamyelocytes % 22; Monocytes % (manual) 3 (0-12); Myelocytes % 22; Platelet Estimate Adequate
[2025-05-15 04:16] LABS: Polychromasia Slight; Target Cell FEW
[2025-05-15] MEDS ORDERED: cefTRIAXone 2GM/50ML D5W 50 ML IV SCH (10:00)
[2025-05-15] MEDS ORDERED: SPIRONOLACTONE 25 MG TAB PO SCH (10:00)
== END 2025-05-15 07:46 | DRG 720 ==
LOC: ER 08:34 → OVERFLOW 10:21 → ICU WEST 10:47 → OVERFLOW 16:49 → ICU WEST 22:46
PROC: 06HY33Z Insertion of Infusion Device into Lower Vein, Percutaneous Approach (ICD-10-PCS; 2025-05-14)
PROC: B54CZZA Ultrasonography of Left Lower Extremity Veins, Guidance (ICD-10-PCS; 2025-05-14)
PROC: 5A1935Z Respiratory Ventilation, Less than 24 Consecutive Hours (ICD-10-PCS; principal; 2025-05-15)
PROC: 0BH17EZ Insertion of Endotracheal Airway into Trachea, Via Natural or Artificial Opening (ICD-10-PCS; 2025-05-15)
DX: A41.9 Sepsis, unspecified organism (principal); J96.01 Acute respiratory failure with hypoxia; N17.0 Acute kidney failure with tubular necrosis; R65.21 Severe sepsis with septic shock; J15.69 Pneumonia due to other Gram-negative bacteria; D68.9 Coagulation defect, unspecified; E87.1 Hypo-osmolality and hyponatremia; J15.9 Unspecified bacterial pneumonia; C78.00 Secondary malignant neoplasm of unspecified lung; J44.9 Chronic obstructive pulmonary disease, unspecified; J84.10 Pulmonary fibrosis, unspecified; C80.1 Malignant (primary) neoplasm, unspecified; K74.60 Unspecified cirrhosis of liver; B18.2 Chronic viral hepatitis C; D72.829 Elevated white blood cell count, unspecified; E87.5 Hyperkalemia; E86.1 Hypovolemia; F17.210 Nicotine dependence, cigarettes, uncomplicated; Z85.05 Personal history of malignant neoplasm of liver; Z59.00 Homelessness unspecified; Z51.5 Encounter for palliative care
CPT/HCPCS: 31500; 36415; 36556; 36600; 71045; 74176; 80053; 82140; 82805; 82962; 83605; 84132; 84484; 85007; 85027; 85610; 85730; 87040; 87070; 87077; 87081; 87205; 94002; 94640; 96365; 96375; G0378; J1815; J2248; J2405; J2704; J3430